=== PATIENT | female | born 1945 | race Caucasian/White ===

== ENCOUNTER 2023-04-22 12:22 | Outpatient (OUT) | payer MEDICARE, SELFPAY ==
[2023-04-22 12:34] LABS: Basophils Absolute Auto 0.1 10^3/uL (0.0-0.1); Basophils Percent Auto 0.6 % (0.2-2.0); Eosinophils Absolute Auto 0.2 10^3/uL (0.0-0.7); Eosinophils Percent Auto 1.9 % (0.9-7.0); Hematocrit 38.4 % (36.0-48.0); Hemoglobin 12.7 g/dL (12.0-16.0); Immature Granulocytes Abs Auto 0.02 10^3/uL (0.00-0.03); Immature Granulocytes Pct Auto 0.3 % (0.0-0.5); Lymphocytes Percent Auto 25.7 % (20.5-60.0); Mean Corpuscular HGB Conc 33.1 g/dL (29.9-35.2); Mean Corpuscular Hemoglobin 31.3 pg (26.7-34.0); Mean Corpuscular Volume 94.6 fL (81.0-99.0); Mean Platelet Volume 10.8 fL (9.5-13.5); Monocytes Absolute Auto 0.6 10^3/uL (0.3-0.8); Monocytes Percent Auto 7.3 % (1.7-12.0); Neutrophils Absolute Auto 5.1 10^3/uL (1.4-6.5); Neutrophils Percent Auto 64.2 % (43.0-75.0); Platelet Count 233 10^3/uL (150-450); Red Blood Count 4.06 10^6/uL (4.20-5.40); Red Cell Distribution Width 12.6 % (11.0-15.0); White Blood Count 7.9 10^3/uL (4.0-11.0)
[2023-04-22 14:13] LABS: Alanine Aminotransferase 24 U/L (14-59); Albumin Level 3.5 g/dL (3.4-5.0); Alkaline Phosphatase 64 U/L (46-116); Anion Gap 7.6; Aspartate Amino Transferase 17 U/L (15-37); BUN Creatinine Ratio 16.5; Bilirubin Total 0.8 mg/dL (0.2-1.0); Calcium 8.8 mg/dL (8.5-10.1); Carbon Dioxide 31.4 mmol/L (21.0-32.0); Chloride 106 mmol/L (98-107); Cholesterol 181 mg/dL (<=200); Estimated GFR (African America >60 (>=60); Estimated GFR (Non-African Ame >60 (>=60); Globulin 3.6 g/dL; Glucose 96 mg/dL (74-106); HDL Cholesterol 60 mg/dL (40-60); Sodium 141 mmol/L (136-145); Total Protein 7.1 g/dL (6.4-8.2); Triglycerides 258 mg/dL (<=150); VLDL CHOLESTEROL 51.6 mg/dL
== END 2023-04-22 12:23 | disposition home or self-care (01) ==
LOC: LAB 12:23
PROVIDERS: PCP Family Medicine; Visit Provider Family Medicine
DX: E78.2 Mixed hyperlipidemia (principal); I10 Essential (primary) hypertension
CPT/HCPCS: 36415; 80053; 80061; 85025

== ENCOUNTER 2024-03-30 08:49 | Outpatient (OUT) | payer MEDICARE, SELFPAY ==
[2024-03-30 10:10] LABS: Alanine Aminotransferase 22 U/L (14-59); Albumin Level 3.5 g/dL (3.4-5.0); Alkaline Phosphatase 70 U/L (46-116); Anion Gap 13.1; Aspartate Amino Transferase 17 U/L (15-37); BUN Creatinine Ratio 19.5; Calcium 9.1 mg/dL (8.5-10.1); Chloride 106 mmol/L (98-107); Chol HDL Ratio 2.6; Cholesterol 179 mg/dL (<=200); Estimated GFR (African America >60 (>=60); Estimated GFR (Non-African Ame >60 (>=60); Globulin 3.6 g/dL; Glucose 88 mg/dL (74-106); HDL Cholesterol 70 mg/dL (40-60); Potassium 4.1 mmol/L (3.5-5.1); Sodium 143 mmol/L (136-145); Total Protein 7.1 g/dL (6.4-8.2); Triglycerides 131 mg/dL (<=150); VLDL CHOLESTEROL 26.2 mg/dL
== END 2024-03-30 08:50 | disposition home or self-care (01) ==
LOC: LAB 08:49
PROVIDERS: PCP Family Medicine; Visit Provider Family Medicine
DX: E78.2 Mixed hyperlipidemia (principal); R79.89 Other specified abnormal findings of blood chemistry; E55.9 Vitamin D deficiency, unspecified
CPT/HCPCS: 36415; 80053; 80061; 82306

== ENCOUNTER 2025-08-04 08:20 | Outpatient (OUT) | payer MEDICARE, SELFPAY ==
--- OUTSIDE RECORDS SUMMARY | 2025-07-22 09:30 | XMS_ITS | Encounter Summary ---
Author Organization [facility] Address [address] [place] [address] Care Team Providers Care Director Of Vocational Training Name Role Phone Unallocated, Noms Provider Primary Care [facility] Reason for Visit * Reason Comments Post-op Encounter Details Date Type Department Care Team (Late st Contact Info) Description 07/22/2025 9:30 AM EDT Office Visit [facility] [address] [place] [address] Telly Rush DO [address] [place] [address] Pseudophakia (Primary Dx) Social History Tobacco Use Types Packs/Day Years Used Date Smoking Tobacco: Never Smokeless Tobacco: Never Alcohol Use Standard Drinks/Week Comments Never 0 (1 standard drink = 0.6 oz pure alcohol) Caffeine intake: 2-3 cups per day coffee & soda AUDIT-C Answer Date Recorded Q1: How often do you have a drink containing alcohol? Never 09/20/2024 Q2: How many drinks containi ng alcohol do you have on a typical day when you are drinking? Patient does not drink Q3: How often do you have si x or more drinks on one occasion? Never 09/20/2024 PHQ-2 Answer Date Recorded Patient Health Questionnaire-2 Score 0 09/20/2024 Comments No Sex and Gender Information Value Date Recorded Sex Assigned at Not on file Legal Sex Female 7:00 PM EDT Gender Identity Not on file Sexual Orientation Not on file documented as of this encounter Progress Notes * Telly Rush DO - 07/22/2025 9:30 AM EDT Images from the original note were not included. Assessment/Plan Diagnoses and all orders for this visit: Pseudophakia - s/p CE OU (1mth): Patient should be close to off all post-op meds. Pt. received final refraction for this eye today. - Ms. Burch has had a wonderful result with multifocal intraocular lens (IOL)s in both eyes (OU). She refracts with a very small Rx in right eye (OD). I think she is going to be great without an Rx at this time. I have asked that she see Ganga in 4 months for a dilated exam. documented in this encounter Plan of Treatment Upcoming Encounters Date Type Department Care Team (Late st Contact Info) Description 09/26/2025 11:30 AM EST Office Visit [facility] [address] [place] [address] Jerzy Kirkland DO [address] [place], [place] [id number] 03/09/2026 10:30 AM EDT Office Visit [facility] [address] [place] [address] Zina Wing PA [address] [place] [address] documented as of this encounter Visit Diagnoses Diagnosis Pseudophakia- Primary Lens replaced by other means documented in this encounter Care Teams Director Of Vocational Training Relationship Specialty Start Date End Date Unallocated, Nomwhit Thao MD [address] [place] [address] PCP - General 09/02/23 documented as of this encounter
--- OUTSIDE RECORDS SUMMARY | 2025-08-01 07:49 | XMS_ITS | Continuity of Care Document ---
Author Organization [facility] Address [address] [place] [address] Phone Care Team Providers Care Assistant Professor Of Philosophy Name Role Phone Francisca Jain MD Primary Care Provider Raymond White MD Attending Provider Francisca Jain MD Attending Provider Care Teams Patient Care Team Team Status: Active Member Role Status Dates Francisca Jain MD Primary Care Provider Active Visit Care Team Team Status: Inactive Member Role Status Dates Francisca Jain MD Primary Care Provider Active Start: May 09, 2025 End: May 09, 2025 Raymond White MD Attending Provider Active art: May 09, 2025 End: May 09, 2025 Patient Care Team Team Status: Inactive Member Role Status Dates Francisca Jain MD Primary Care Provider Active Start: August 01, 2025 End: August 01, 2025 Francisca Jain MD Attending Provider Active art: August 01, 2025 End: August 01, 2025 Chief Complaint and Reason for Visit Chief Complaint Admit Date m81.0 ve55.9 z79.899 May 09, 2025 10: 24am Wellness August 01, 2025 10 :47am Reason for Visit Admit Date Essential (primary) hypertension August 01, 2025 10:47am Mixed hyperlipidemia August 01, 2025 1 0:47am Allergies, Adverse Reactions, Alerts Allergen Type Severity Reaction Last Updated Verified Status Sulfa (Sulfonamide Antibiotics) Allergy Unknown Hives August 01 11:13am Yes Active pneumonia vaccine Allergy Moderate Swelling March 11:03am No Active Social History Smoking Status Status Start Date End Date Date of Observa tion Never smoked tobacco (finding) March 25, 2023 1:12pm Observation Status Observation Response Date of Response Legal Sex Female (finding) Sex Assigned At Female 1945 Family History Relationship Condition Age at Onset Recorded Date/T radha father Heart disease Unknown Unknown mother Unknown Heart disease Unknown Problems Active Problems Medical Problem Onset Date Status Medicare annual wellness visit, subsequent Unkno wn Active Maxillary sinusitis, acute Unknown Activ e Low vitamin D level Unknown Active Osteoporosis Unknown Active Mixed hyperlipidemia Unknown Active Essential (primary) hypertension Unknown Active Gastro-esophageal reflux disease without esophag itis Unknown Active Allergic rhinitis, unspecified March 21, 2015 A ctive Strain of muscle, fascia and tendon of lower back, initial encounter Unknown Active Vitamin D deficiency Unknown Active Medications Medication Status Dose Units Route Directions Qty Days St art Date Stop Date End Date Instructions Adherence Losartan 25 mg tablet Discont inued 25 MG PO Daily January 12, 2024 12:48p m March 29, 2024 11:31 am Losartan 25 mg tablet Discont inued 25 MG PO Daily June 11, 2024 7:58am [facility] thom 2023 5:32p m Pantoprazol e 40 mg tablet,myesha yed release (DR/EC) Discont inued 40 MG PO Daily June 11, 2024 7:58am [facility] thom 2023 5:32p m Simvastatin 20 mg tablet Discont inued 20 MG PO Daily 2023 8:40am [facility] 2023 5:32p m Losartan 25 mg tablet Active 25 MG PO Daily [facility] 2023 5:32pm Complies with drug therapy Pantoprazol e 40 mg tablet,myesha yed release (DR/EC) Discont inued 40 MG PO Daily Dece er 2023 5:32pm December 27, 2024 1:55p m Simvastatin 20 mg tablet Active 20 MG PO Daily 90 Dece er 2023 5:32pm Complies with drug therapy Pantoprazol e 40 mg tablet,myesha yed release (DR/EC) Active 40 MG PO Daily December 27, 2024 1:55pm Complies with drug therapy Pantoprazol e 40 mg tablet,myesha yed release (DR/EC) Discont inued 40 MG PO Daily March 29, 2024 11:30a m Augus t 2023 7:59a m Losartan 25 mg tablet Discont inued 25 MG PO Daily March 29, 2024 11:30a m Augus t 2023 7:59a m Lidocaine 5 % adhesive patch,medic ated Active 1 PATCH TOPICA L Daily as needed Octobe r 2024 11:13a m leave on most painful area for up to 12 hrs Unknown Losartan 25 mg tablet Discont inued 25 MG PO Daily December 31, 2023 1:00am January 12, 2024 12:49 pm Pantoprazol e 40 mg tablet,myesha yed release (DR/EC) Discont inued 40 MG PO Daily December 31, 2023 1:00am March 29, 2024 11:31 am Simvastatin 20 mg tablet Discont inued 20 MG PO Daily December 31, 2023 1:00am Septe er 2023 8:41a m Azithromyci n 250 mg tablet Discont inued 250 MG PO daily 6 December 31, 2023 1:00am March 29, 2024 11:02 am Take 2 tablets today and 1 for the next 4 days Naproxen 375 mg tablet Discont inued 375 MG PO Twice daily 20 10 Septem 2023 12:00a m Octob er 2024 11:14 am Lidocaine 5 % adhesive patch,medic ated Discont inued 1 PATCH TOPICA L Daily 15 15 Sept2023 12:00a m Octob er 2024 11:14 am leave on most painful area for up to 12 hrs Immunizations Immunization Event Date Not Given Reason Dose Number [place] Lot Number Vaccine Information Statement (VIS) Detail Administration Location COVID-19 mRNA, Comirnaty ([facility]) November 28, 2020 COVID-19 mRNA, Comirnaty ([facility]) August 06, 2021 Fluzone TIV High-Dose [id number]+ August 01, 2025 [id number] [facility] influenza, unspecified formulation September 01, 2018 influenza, unspecified formulation August 30, 2019 influenza, unspecified formulation August 14, 2020 influenza, unspecified formulation September 11, 2021 Pneumococcal Conjugate Vaccine, 13 valent June 04, 2018 Relevant Diagnostic Tests and/or Laboratory Data Laboratory Results Test Collection Date/Time Result Date/Time Result Interpretation Reference Range Result Comment Performing Site Blood Urea Nitrogen May 09, 2025 10:25am May 09, 2025 1:53pm 16 mg/dL 7-25 [facility] [id number] [address] [place] [address] Creatinine May 09, 2025 10:25am May 09, 2025 1:53pm 0.73 mg/dL 0.60-1.20 [facility] [id number] [address] [place] [address] Estimated GFR (CKD-EPI) May 09, 2025 10:25am May 09, 2025 1:53pm > 60.0 mL/Min [facility] [id number] [address] [place], [place] [id number] Calcium Level May 09, 2025 10:25am May 09, 2025 1:53pm 9.4 mg/dL 8.6-10.3 [facility] [id number] [address] [place], [place] [id number] Phosphorus Level May 09, 2025 10:25am May 09, 2025 1:53pm 3.4 mg/dL 2.5-4.5 [facility] [id number] [address] [place] [address] Magnesium Level May 09, 2025 10:25am May 09, 2025 1:53pm 1.9 mg/dL 1.9-2.7 [facility] [id number] [address] [place], [place] [id number] Pharmacy Creatinine Clearance (Chem May 09, 2025 10:25am May 09, 2025 1:53pm N/A [facility] [id number] [address] [place], [place] [address] Vital Signs Vital Reading Result Reference Range Collection Date/Time Height 62.5 [in_i] August 01 11:12am Weight 71.32 kg August 01 11:12am Heart Rate 85 /min 60-100 August 01 11:12am BP Systolic 126 mm[Hg] 100-140 August 01 11:21am BP Diastolic 79 mm[Hg] 60-100 August 01 11:21am BMI (Body Mass Index) 28.3 kg/m2 Octobe r 2024 11:12am Advance Directives Advance Directive Response Recorded Date/ Time Advance Directives No May 29 018 1:06pm Insurance Providers Guarantor [place] [address] Contact Info. Home Phone: Payer Policy Id Subscriber's Name Subscriber Id Effectiv e Date Expiration Date [employer] [facility] PFFS [id number] Eileen Burch [id number] Encounters Encounter Location(s) Arrival/Admit Date Discharge/Depart Date Provider(s) Departed Clinical -Lab [address] May 09, 2025 10:24am May 09, 2025 10:25am Raymond White MD Departed Physician/Prov ider Office Visit -[facility] August 01, 2025 10:47am August 01, 2025 11:48am Francisca Jain MD Recent Diagnosis Onset Date Admit Date Essential (primary) hypertension Unknown August 01, 2025 10:47am Mixed hyperlipidemia Unknown July 10:47am Assessments Diagnosis Onset Date Resolution Status Admit Date Essential (primary) hypertension acu te August 01, 2025 10:47am Mixed hyperlipidemia acute Octo 2024 10:47am Plan of Treatment Future Tests Future scheduled test information is unavailable Pending Tests Test Name Ordered Date Scheduled Date Comprehensive Metabolic Panel August 01, 2025 11:32am Future Visits Future appointment information is unavailable Referrals to Other Providers Referral information is unavailable Future Procedures Procedure Name Ordered Date Scheduled Date Complete Blood Count Auto Diff August 01, 2025 11:32am Lipid Panel August 01, 2025 11:32am MicroAlb Creat Ratio,U August 01, 2025 11:32am Future Medications Future medication information is unavailable Patient Instructions Patient instructions are unavailable
--- OUTSIDE RECORDS SUMMARY | 2025-08-02 08:51 | XMS_ITS | Encounter Summary ---
Author Organization [facility] Address [address] [place] [address] Care Team Providers Care Sonar Subsystem Equipment Operator Name Role Phone Unallocated, Noms Provider Primary Care [facility] Encounter Details Date Type Department Care Team ([facility] Contact Info) Description 07/22/2025 Bamboo flowsheet [facility] [address] [place] [phone] Telly Rush, DO [address] [place] [address] Social History Tobacco Use Types Packs/Day Years [...] on file documented as of this encounter Plan of Treatment Upcoming Encounters Date Type Department Care Team ([facility] Contact Info) Description 09/26/2025 11:30 AM EST Office Visit DANIEL [facility] [address] [place] [address] Jerzy Kirkland DO [address] [place] [address] 03/09/2026 10:30 AM EDT Office Visit [facility] [address] [place] [address] Zina Wing PA [address] [place] [address] documented as of this encounter Visit Diagnoses Not on filedocumented in this encounter Care Teams Sonar Subsystem Equipment Operator Relationship Specialty Start Date End Date Unallocated, Daniel Thao MD [address] [place] [address] PCP - General 09/02/23 documented as of this encounter
--- OUTSIDE RECORDS SUMMARY | 2025-08-02 08:51 | XMS_ITS | Encounter Summary ---
Author Organization [facility] Address [address] [facility] [place] [address] Care Team Providers Care Project Asst Name Role Phone Unallocated, Noms Provider Primary Care [facility] Encounter Details Date Type Department Care Team (Latest Contact Info) Description 07/22/2025 Travel Social History Tobacco Use Types Packs/Day Years [...] HOLLOWAY [address] [place] [address] Jerzy Kirkland, DO [address] [place] [address] 03/09/2026 10:30 AM EDT Office Visit [facility] [address] [place] [address] Zina Wing PA [address] [place] [address] documented as of this encounter Visit Diagnoses Not on filedocumented in this encounter Care Teams Project Asst Relationship Specialty Start Date End Date Unallocated, Nomwhit Thao MD [address] [facility] [place] [address] PCP - General 09/02/23 documented as of this encounter
--- OUTSIDE RECORDS SUMMARY | 2025-08-02 08:51 | XMS_ITS | Clinical Summary ---
Author Organization [facility] Address [address] [place] [address] Care Team Providers Care Production Line Technician Name Role Phone Unallocated, Noms Provider Primary Care Le[facility]ardoi makayla Allergies Active Allergy Reactions Criticality Noted Date Comments Other Swelling High 03/29/2024 Pneumonia Vaccine Sulfanilamide 09/02/2023 Other Reaction(s): Unknown Medications losartan (Cozaar) 25 MG tablet 1 (one) time each day at the same time. Active Protonix 40 MG EC tablet 1 (one) time each day at the same time. Active simvastatin (Zocor) 20 MG tablet 1 (one) time each day at the same time. Active Calcium Carb-Cholecalc iferol (CALCIUM 500 + D3 PO) Orally Active MULTIPLE VITAMIN PO Multiple Vitamin Active Prednisolon-Mo xiflox-Bromfen ac 1-0.5-0.075 % solutionIndica tions:Age-rela paolo nuclear cataract of both eyes Administer 1 drop into affected eye(s) in the morning and 1 drop at noon and 1 drop in the evening and 1 drop before bedtime. 10 mL 1 5 07/22/20 25 Discontinu ed(Therapy completed) Active Problems Problem Noted Date Diagnosed Date Dry eyes 07/12/2025 Pseudophakia 05/31/2025 Essential (primary) hypertension 09/20/2024 Gastro-esophageal reflux disease without esophag itis 09/20/2024 Low vitamin D level 09/20/2024 Mixed hyperlipidemia 09/20/2024 Acquired hallux valgus 09/02/2023 Atrophy of vagina 09/02/2023 Contracture, left ankle 09/02/2023 Fibrocystic breast changes 09/02/2023 Menopausal osteoporosis 09/02/2023 Allergic rhinitis, unspecified 03/21/2015 Osteoporosis 10/27/2008 Resolved Problems Problem Noted Date Diagnosed Date Resolved Date Age-related nuclear cataract of right eye 06/07/2025 06/14/2025 Age-related nuclear cataract of both eyes 05/10/2025 06/07/2025 Abnormal mammogram 09/02/2023 3 Encounters Date Type Department Care Team Description 07/22/2025 9:30 AM EDT Office Visit [facility] [address] [place] [address] Telly Rush, DO Pseudophakia (Primary Dx) 07/22/2025 Bamboo flowsheet [facility] [address] [place] [address] Telly Rush, DO 07/22/2025 Travel 07/21/2025 Travel 07/12/2025 9:45 AM EDT Office Visit [facility] [address] [place] [address] Telly Rush, DO Dry eyes (Primary Dx) 07/12/2025 Bamboo flowsheet [facility] [address] [place] [address] Telly Rush, DO 07/12/2025 Travel 06/21/2025 10:15 AM EDT Office Visit [facility] [address] [place] [address] Telly Rush, DO Pseudophakia (Primary Dx) 06/21/2025 Bamboo flowsheet [facility] [address] [place] [address] Telly Rush, DO 06/21/2025 Travel 06/16/2025 Travel 06/14/2025 9:00 AM EDT Office Visit [facility] [address] [place] [address] Telly Rush, DO Pseudophakia (Primary Dx) 06/14/2025 [facility]amboo [facility] [address] [place] [address] Telly Rush, DO 06/14/2025 Travel 06/07/2025 8:45 AM EDT Office Visit [facility] [address] [place] [address] Telly Rush, DO Pseudophakia (Primary Dx); Age-related nuclear cataract of right eye 06/07/2025 Bamboo flowsheet [facility] [address] [place] [address] Telly Rush, DO 06/07/2025 Travel 06/06/2025 Travel 05/31/2025 8:30 AM EDT Office Visit [facility] [address] [place] [address] Telly Rush, DO Pseudophakia (Primary Dx) 05/31/2025 Bamboo flowsheet [facility] [address] [place] [address] Telly Rush, DO 05/31/2025 Travel 05/10/2025 1:00 PM EDT Office Visit [facility] [address] [place] [address] Telly Rush, DO Age-related nuclear cataract of both eyes (Primary Dx) 05/10/2025 Orders Only [facility] [address] [place] [address] Telly Rush, DO Age-related nuclear cataract of both eyes 05/10/2025 Refill [facility] [address] [place] [address] Lavinia Smith, JENNIFER 05/10/2025 Bamboo flowsheet [facility] [address] [place] [address] Telly Rush, DO 05/10/2025 Travel from Last 3 Months Immunizations Immunization Administration Dates Next Due Influenza, High Dose Seasona l, Preservative Free 09/13/2024 Influenza, High-dose Seasona l, Quadrivalent, Preservative Free 08/09/2022 Influenza, Seasonal, Quadriv alent, Adjuvanted 08/29/2023,09/11/2021 Influenza, Unspecified 09/11/2021,2019,08/30/2019,2017 Influenza, seasonal, injectable 08/09/2019 Influenza, trivalent, adjuvanted 09/01/2018 Pneumococcal Conjugate PCV 13 06/04/2018 Family History Medical History Relation Name Comments Hypertension Brother Moi Viramontes Cataracts Father Moi Viramontes Heart disease Father Moi Viramontes Hypertension Father Moi Viramontes Heart disease Maternal Grandfather Cataracts Mother Helga Viramontes Heart disease Mother Helga Viramontes Lung cancer Paternal Grandmother Cancer Neg Hx Relation Name Status Comments Brothharley Viramontes Alive Father Moi Viramontes Maternal Grandfather Maternal Grandmother Mother Helga Viramontes Paternal Grandfather Paternal Grandmother Social History Tobacco Use Types Packs/Day Years Used Date Smoking Tobacco: Never Smokeless Tobacco: Never Tobacco Cessation:Counseling Given: Not Answered Alcohol Use Standard Drinks/Week Comments Never 0 [...] on file Sexual Orientation Not on file Last Filed Vital Signs Vital Sign Reading Time Taken Comments Blood Pressure 126/74 09/20/2024 1:15 PM EST Pulse - - Temperature - - Respiratory Rate - - Oxygen Saturation - - Inhaled Oxygen Concentration - - Weight 72.6 kg (160 lb) 09/20/2024 1:15 PM EST Height 159.4 cm (5' 2.75 ) 09/20/2024 1:15 PM ES T Body Mass Index 28.57 09/20/2024 1:15 PM EST Plan of Treatment Upcoming Encounters Date Type Department Care Team (Late st Contact Info) Description 09/26/2025 11:30 AM EST Office Visit DANIEL [facility] [address] [place] [address] Jerzy Kirkland DO [address] [place] [address] 03/09/2026 10:30 AM EDT Office Visit [facility] [address] [place] [address] Zina Wing PA [address] [place] [address] Health Maintenance Due Date Last Done Comments Pneumococcal Vaccine: 65+ Ye ars (2 of 2 - PPSV23) 06/04/2019 06/04/2018 Medicare Annual Wellness (AWV) 03/29/2025 03/29/2024 , 09/02/2023 Influenza Vaccine (#1) 2025 , 08/29/2023, 08/09/2022, Additional history exists Procedures Procedure Name Priority Date/Time Associated Diagnosis Comments IOL BIOMETRY - OU - BOTH EYES Routine 05/10/2025 1:36 PM EDT Age-related nuclear cataract of both eyes from Last 3 Months Results * IOL Biometry - OU - Both Eyes (CPT 93243) (05/10/2025 1:36 PM EDT) Anatomical Region Laterality Modality Head Other Narrative 05/10/2025 1:36 PM EDT Diagnosis: Cataract both eyes (OU) Testing Indication: Performed for preop measurements in the determination of an intraocular lens (IOL) for both eyes (OU) Test Reliability: Good quality both eyes (OU) Interpretation: Good measurements for intraocular lens (IOL) calculation purposes. Calculation made for both eyes (OU). us Telly Rush DO OPH[facility] ULTRASOUND Final Resu lt from Last 3 Months Insurance [employer] MED[employer]ARE [employer]VANTAGE Care Teams Production Line Technician Relationship Specialty Start Date End Date Unallocated, Noms Provider, [address] [place] [address] PCP - General 09/02/23
--- OUTSIDE RECORDS SUMMARY | 2025-08-02 08:51 | XMS_ITS | Encounter Summary ---
Author Organization [facility] Address [address] [facility] [place] [address] Care Team Providers Care Head Strength And Conditioning Coach Name Role Phone Unallocated, Noms Provider Primary Care [facility] Encounter Details Date Type Department Care Team (Latest Contact Info) Description 07/21/2025 Travel Social History Tobacco Use Types Packs/Day [...] HOLLOWAY [address] [place] [address] Jerzy Kirkland, DO [address] [place] [address] 03/09/2026 10:30 AM EDT Office Visit [facility] [address] [place] [address] Zina Wing PA [address] [place] [address] documented as of this encounter Visit Diagnoses Not on filedocumented in this encounter Care Teams Head Strength And Conditioning Coach Relationship Specialty Start Date End Date Unallocated, Nomwhit Thao MD [address] [facility] [place] [address] PCP - General 09/02/23 documented as of this encounter
--- OUTSIDE RECORDS SUMMARY | 2025-08-04 08:26 | XMS_ITS | CCD ---
Author Organization [facility] CliniSyla Care Team Providers Care Furnace And Wash Equipment Operator Name Role Phone SHAIKH VALDEZ Attending Unavailable DR FRANCISCA PEDROZA Primary Care Unavailable SHAIKH VALDEZ Admitting Unavailable SHAIKH VALDEZ Consulting Unavailable DR FRANCISCA PEDROZA Admitting Unavailable KASIA, DR FRANCISCA Dangelo Primary Care Unavailable DR FRANCISCA PEDROZA Consulting Unavailable KASIA, DR FRANCISCA Dangelo Attending Unavailable Francisca Pedroza Unavailable MD Francisca Pedroza Primary Care Provider YENIFER [place] Attending Provider MD Raymond White Attending Provider [phone] MD Francisca Pedroza Primary Care Provider Unallocated , [place] Provider [facility] Francisca Pedroza MD Primary Care Provider Raymond White MD Attending Provider Francisca Pedroza MD Primary Care Provider Raymond White MD Attending Provider Francisca Pedroza Primary Care Unavailable Raymond White Attending Unavailable Raymond White Admitting Unavailable Raymond White Attending Unavailable Raymond White Admitting Unavailable Francisca Pedroza Primary Care Unavailable JANIYA OLIVAREZ Referring Unavailable JANIYA OLIVAREZ Referring Unavailable ANTHONY LAURENT Attending Unavailable DONG RUSH Attending Unavailable JOHN TAYLOR Referring Unavailable DONG RUSH Attending Unavailable DONG RUSH Attending Unavailable JANIYA OLIVAREZ Attending Unavailable DONG RUSH Attending Unavailable DONG RUSH Attending Unavailable DONG RUSH Attending Unavailable DONG RUSH Attending Unavailable Francisca Pedroza MD Attending Provider [phone] Allergies Allergy Classification Reported Allergen(s) Allergy Type Date of Onset Reaction(s) Facility Sulfonamides (antibiotic) (2 sources) Sulfonamides (Antibiotic) Drug Allergy 4 [facility] (1 source) Pneumococcal vaccine Drug Allergy [facility] (1 source) Sulfonamides (Antibiotic) Drug allergy (disorder) [facility] (6 sources) Sulfonamides (Antibiotic) Allergy to substance 4 [facility] (8 sources) pneumonia vaccine Allergy to substance 4 [facility] (20 sources) Sulfanilamide Allergy to substance 3 [facility] (20 sources) Other Allergy to substance 4 Swelling [facility] Medications Current Medications Medication Drug Class(es) Dates Sig (Normalized) Sig (Original) Calcium Carb-Cholecalcifer ol (CALCIUM 500 + D3 PO) (20 sources) Calcium Carb-Cholecalcifero l (CALCIUM 500 + D3 PO) Orally Active lidocaine 0.05 mg/mg medicated patch (5 sources) Antiarrhythmic, Amide Local Anesthetic Start: 07-01-2024 End: 08-01-2025 apply 1 dose topically once daily as needed MULTIPLE VITAMIN PO (20 sources) MULTIPLE VITAMIN PO Multiple Vitamin Active Prednisolon-Moxifl ox-Bromfenac 1-0.5-0.075 % solution (14 sources) Start: 05-10-2025 End: 07-22-2025 Prednisolon-Moxiflo x-Bromfenac 1-0.5-0.075 % solution Indications: Age-related nuclear cataract of both eyes Administer 1 drop into affected eye(s) in the morning and 1 drop at noon and 1 drop in the evening and 1 drop before bedtime. 10 mL 1 05/10/2025 07/22/2025 Discontinued (Therapy completed) Start: 05-10-2025 Prednisolon-Mo xiflox-Bromfenac 1-0.5-0.075 % solution Indications: Age-related nuclear cataract of both eyes Administer 1 drop into affected eye(s) in the morning and 1 drop at noon and 1 drop in the evening and 1 drop before bedtime. 10 mL 1 05/10/2025 Active Completed/Discontinued Medications Medication Drug Class(es) Dates Sig (Normalized) Sig (Original) azithromycin 250 mg oral tablet (8 sources) Macrolide Antimicrobial Start: 12-31-2023 End: 03-29-2024 Azithromycin 250 mg tablet Discontinued 250 MG PO daily 6 5 December 31, 2023 1:00am March 29, 2024 11:02am Take 2 tablets today and 1 for the next 4 days hydrocortisone 10 mg/ml / neomycin 3.5 mg/ml / polymyxin b 26009 unt/ml otic suspension (4 sources) Aminoglycoside Antibacterial, Polymyxin-class Antibacterial, Corticosteroid Start: 03-25-2023 End: 09-20-2024 neomycin-polymyxi n-hydrocortisone (Cortisporin) 3.5-05268-2 otic suspension INSTILL 4 DROPS INTO AFFECTED EAR 3 TIMES A DAY FOR 7 DAYS 03/25/2023 09/20/2024 Discontinued Start: 03-25-2023 Start: 03-25-2023 Neomycin-Polym yxin-HC 3.5-60274-9 4 drops into affected ear Otic Three times a day for 7 days February, Active losartan potassium 25 mg oral tablet (20 sources) Angiotensin 2 Receptor Elia Start: 12-31-2023 End: 10-11-2024 take 1 tablet by mouth once daily Losartan 25 mg tablet Discontinued 25 MG PO Daily March 29, 2024 11:30am June 11, 2024 7:59am naproxen 375 mg oral tablet (4 sources) Nonsteroidal Anti-inflammatory Drug Start: 07-01-2024 End: 08-01-2025 take 1 tablet by mouth twice daily Naproxen 375 mg tablet Discontinued 375 MG PO Twice daily 15 08July 01, 2024 12:00am August 01, 2025 11:14am pantoprazole 40 mg delayed release oral tablet (20 sources) Proton Pump Inhibitor Start: 12-31-2022 End: 12-27-2024 take 1 tablet by mouth once daily Pantoprazole 40 mg tablet,delayed release (DR/EC) Discontinued 40 MG PO Daily December 31, 2023 1:00am March 29, 2024 11:31am simvastatin 20 mg oral tablet (20 sources) HMG-CoA Reductase Inhibitor Start: 12-31-2023 End: 10-11-2024 take 1 tablet by mouth once daily Simvastatin 20 mg tablet Discontinued 20 MG PO Daily 90 July 01, 2024 8:40am October 11, 2024 5:32pm Problems Active Problems Problem Classification Problem Date Documented Date Episodic/Chronic Acquired foot deformities (20 sources) Acquired hallux valgus; Translations: [Hallux valgus (acquired), unspecified foot] Onset: 09-02-2023 09-02-2023 Chronic Cataract (20 sources) Bilateral age-related nuclear cataracts; Translations: [Age-related nuclear cataract, bilateral] Onset: 05-10-2025 Resolved: 06-14-2025 05-10-2025 Chronic Disorders of lipid metabolism (20 sources) Hyperlipidemia, unspecified; Translations: [Mixed hyperlipidemia] Onset: 12-26-2021 Chronic Esophageal disorders (20 sources) Gastroesophageal reflux disease without esophagitis; Translations: [Gastro-esophageal reflux disease without esophagitis] Onset: 09-20-2024 12-31-2023 Chronic Essential hypertension (20 sources) Essential (primary) hypertension; Translations: [Essential hypertension] Onset: 12-25-2021 Chronic Menopausal disorders (20 sources) Atrophic vaginitis; Translations: [Postmenopausal atrophic vaginitis] Onset: 09-02-2023 09-20-2024 Chronic Neoplasms of unspecified nature or uncertain behavior (2 sources) Neoplasm of uncertain behavior of skin; Translations: [Neoplasm of uncertain behavior of skin] 03-09-2025 Episodic Nonmalignant breast conditions (20 sources) Fibrocystic disease of breast; Translations: [Diffuse cystic mastopathy of unspecified breast] Onset: 09-02-2023 09-02-2023 Chronic Nutritional deficiencies (11 sources) Vitamin D deficiency; Translations: [Vitamin D deficiency, unspecified] 03-29-2024 Chronic Osteoporosis (20 sources) Osteoporosis; Translations: [Age-related osteoporosis without current pathological fracture] Onset: 10-27-2008 12-31-2023 Chronic Other acquired deformities (20 sources) Contracture of joint of left ankle; Translations: [Contracture, left ankle] Onset: 09-02-2023 09-02-2023 Chronic Other and unspecified benign neoplasm (2 sources) Melanocytic nevus of trunk; Translations: [Melanocytic nevi of trunk] 03-09-2025 Episodic Other and unspecified benign neoplasm (2 sources) Senile angioma; Translations: [Hemangioma of skin and subcutaneous tissue] 03-09-2025 Episodic Other ear and sense organ disorders (2 sources) Otitis externa; Translations: [Other otitis externa, right ear] Chronic Other ear and sense organ disorders (1 source) Other otitis externa, right ear Chronic Other eye disorders (4 sources) Dry eyes; Translations: [Dry eye syndrome of bilateral lacrimal glands] Onset: 07-12-2025 07-12-2025 Episodic Other screening for suspected conditions (not mental disorders or infectious disease) (20 sources) Decreased vitamin D; Translations: [Other specified abnormal findings of blood chemistry] Onset: 09-02-2023 Resolved: 09-02-2023 03-29-2024 Episodic Other skin disorders (2 sources) Seborrheic keratosis; Translations: [Other seborrheic keratosis] 03-09-2025 Episodic Other skin disorders (2 sources) Lentigo simplex; Translations: [Other melanin hyperpigmentation] 03-09-2025 Episodic Other upper respiratory disease (20 sources) Allergic rhinitis; Translations: [Allergic rhinitis, unspecified] Onset: 03-21-2015 12-31-2023 Chronic Other upper respiratory infections (9 sources) Acute maxillary sinusitis; Translations: [Acute maxillary sinusitis, unspecified] 12-31-2023 Episodic Sprains and strains (5 sources) Low back strain; Translations: [Strain of muscle, fascia and tendon of lower back, initial encounter] 07-01-2024 Episodic Past or Other Problems Problem Classification Problem Date Documented Date Episodic/Chronic Noninfectious gastroenteritis (4 sources) Noninfective gastroenteritis and colitis, unspecified; Translations: [NONINFECTIVE GE AND COLITIS UNS] Onset: 07-20-2021 Episodic Results Test Name Value Interpretation Reference Range Facility [facility] - bilateralon 0 05-10-2025 Diagnosis: Cataract both eyes (OU) Testing Indication: Performed for preop measurements in the determination of an intraocular lens (IOL) for both eyes (OU) Test Reliability: Good quality both eyes (OU) Interpretation: Good measurements for intraocular lens (IOL) calculation purposes. Calculation made for both eyes (OU). [facility] Study observation (narrative) [facility] Calcium [Mass/volume] in Ser um or PlasmaOrdered By: Raymond White on 05-09-2025 Calcium [Mass/Vol] 9.4 mg/dL 8.6-10.3 [facility] Comment on above: Performed By: #### P HOS, MG, CREAT, CA, BUN #### [facility] [address] [place] [address] Creatinineon 05-09-2025 GFR/1.73 sq M.predicted MDRD (S/P/Bld) [Vol rate/Area] mL/min/{1.73_m2} Normal [facility] Comment on above: Performed By: #### P HOS, MG, CREAT, CA, BUN #### [facility] [address] [place] [address] Creatinine [Mass/volume] in Serum or PlasmaOrdered By: Raymond White on 05-09-2025 Creatinine [Mass/Vol] 0.73 mg/dL 0.60-1.20 [facility] Comment on above: Performed By: #### P HOS, MG, CREAT, CA, BUN #### [facility] [address] [place] [address] Magnesium [Mass/volume] in S florecita or PlasmaOrdered By: Raymond White on 05-09-2025 Magnesium [Mass/Vol] 1.9 mg/dL 1.9-2.7 [facility] Comment on above: Result Comment: PERF ORMED BY: [place] [address] PATHOLOGIST ARTIST MANNEQUIN COLORING DENISE ROBERTSON M.D. Performed By: #### P HOS, MG, CREAT, CA, BUN #### [address] No Panel InformationOrdered By: Raymond White on 05-09-2025 Estimated GFR (CKD-EPI) > 60.0 mL/Min [facility] Creatinine Clearance (Chem N/A [facility] Phosphate [Mass/volume] in S florecita or PlasmaOrdered By: Raymond White on 05-09-2025 Phosphate [Mass/Vol] 3.4 mg/dL 2.5-4.5 [facility] Comment on above: Performed By: #### P HOS, MG, CREAT, CA, BUN #### [facility] [address] Urea nitrogen [Mass/volume] in Serum or PlasmaOrdered By: Raymond White on 05-09-2025 Urea nitrogen [Mass/Vol] 16 mg/dL 7 [facility] Comment on above: Performed By: #### P HOS, MG, CREAT, CA, BUN #### [facility] [address] BI MAMMOGRAM SCREENING TOMOS YNTHESIS BILATERALon 12-31-2024 BI MAMMOGRAM SCREENING TOMOSYNTHESIS BILATERAL This is a summary report. The complete report is available in the patient's medical record. If you cannot access the medical record, please contact the sending organization for a detailed fax or copy. Examination: BI MAMMOGRAM SCREENING TOMOSYNTHESIS BILATERAL Clinical History: Breast Cancer Screening Technique: Screening digital mammography study of both breasts was performed with 2-D and 3-D tomosynthesis imaging. Study was compared to the prior exam dated 09/03/2023. Findings: There is no evidence of interval dominant spiculated mass, grouped microcalcifications, or skin thickening which would be suggestive of malignancy. A few benign-appearing calcifications are noted on the left. Axillary lymph nodes are noted on the left and appear grossly unremarkable. IMPRESSION: Impression: No specific evidence of malignancy seen in either breast. BIRADS 2 - Benign Findings DENSITY: There are scattered areas of fibroglandular density. FOLLOW-UP: Routine Screening Mammogram ELECTRONICALLY SIGNED BY: Rayray Stockton M.D. Normal Not Available Comment on above: Order Comment: Spot compression and us prn Blood Urea Nitrogenon 2024 Urea nitrogen [Mass/Vol] 15 mg/dL Normal 05-20 [facility] Comment on above: Performed By: #### C A, BUN, CREAT, PHOS, MG #### [facility] [address] [id number] [facility] Calciumon 11-03-2024 Calcium [Mass/Vol] 9.5 mg/dL Normal 8.6-10.3 [facility] Comment on above: Performed By: #### C A, BUN, CREAT, PHOS, MG #### [address] Calcium [Mass/volume] in Ser um or PlasmaOrdered By: Raymond White on 11-03-2024 Calcium [Mass/Vol] Calcium [Mass/volume] in Serum or Plasma 8.6-10.3 [facility] Creatinineon 11-03-2024 Creatinine [Mass/Vol] 0.87 mg/dL Normal 0.60-1.20 [facility] Comment on above: Performed By: #### C A, BUN, CREAT, PHOS, MG #### [address] GFR/1.73 sq M.predicted MDRD (S/P/Bld) [Vol rate/Area] mL/min/{1.73_m2} Normal [facility] Comment on above: Performed By: #### C A, BUN, CREAT, PHOS, MG #### [address] Creatinine [Mass/volume] in Serum or PlasmaOrdered By: Raymond White on 11-03-2024 Creatinine [Mass/Vol] Creatinine [Mass/volume] in Serum or Plasma 0.60-1.20 [facility] Magnesiumon 11-03-2024 Magnesium [Mass/Vol] 2.0 mg/dL Normal 1.9-2.7 [facility] Comment on above: Result Comment: PERF ORMED BY: [place] [address] PATHOLOGIST ARTIST MANNEQU[employer] COLORING NOLAN MAGANA M.D. Performed By: #### C A, BUN, CREAT, PHOS, MG #### [address] Magnesium [Mass/volume] in S florecita or PlasmaOrdered By: Raymond White on 11-03-2024 Magnesium [Mass/Vol] Magnesium [Mass/volume] in Serum or Plasma 1.9-2.7 [facility] No Panel InformationOrdered By: Raymond White on 11-03-2024 Estimated GFR (CKD-EPI) > 60.0 mL/Min [facility] Creatinine Clearance (Chem N/A [facility] Phosphate [Mass/volume] in S florecita or PlasmaOrdered By: Raymond White on 11-03-2024 Phosphate [Mass/Vol] Phosphate [Mass/volume] in Serum or Plasma 2.5-4.5 [facility] Phosphoruson 11-03-2024 Phosphate [Mass/Vol] 3.6 mg/dL Normal 2.5-4.5 [facility] Comment on above: Performed By: #### C A, BUN, CREAT, PHOS, MG #### [facility] [address] Urea nitrogen [Mass/volume] in Serum or PlasmaOrdered By: Raymond White on 11-03-2024 Urea nitrogen [Mass/Vol] Urea nitrogen [Mass/volume] in Serum or Plasma 7-25 [facility] Calcium [Mass/volume] in Ser um or PlasmaOrdered By: Raymond White on 04-22-2024 Calcium [Mass/Vol] 9.3 mg/dL 8.6-10.3 [facility] Creatinine [Mass/volume] in Serum or PlasmaOrdered By: Raymond White on 04-22-2024 Creatinine [Mass/Vol] 0.89 mg/dL 0.60-1.20 [facility] Magnesium [Mass/volume] in S florecita or PlasmaOrdered By: Raymond White on 04-22-2024 Magnesium [Mass/Vol] 2.0 mg/dL 1.9-2.7 [facility] No Panel InformationOrdered By: Raymond White on 04-22-2024 Estimated GFR (CKD-EPI) > 60.0 mL/Min [facility] Creatinine Clearance (Chem N/A [facility] Phosphate [Mass/volume] in S florecita or PlasmaOrdered By: Raymond White on 04-22-2024 Phosphate [Mass/Vol] 3.1 mg/dL 2.5-4.5 [facility] Urea nitrogen [Mass/volume] in Serum or PlasmaOrdered By: Raymond White on 04-22-2024 Urea nitrogen [Mass/Vol] 16 mg/dL 7- [facility] Cholesterol in LDL Calc [Mas s/Vol]on 03-30-2024 Cholesterol in LDL [Mass/Vol] 83.0 mg/dL [facility] Comment on above: <100 mg/dl [id number] 0-129 mg/dl NEAR OR ABOVE [id number] mg/dl BORDERLINE [id number] mg/dl HIGH>190 mg/dl VERY HIGH Cholesterol in VLDL Calc [Ma ss/Vol]on 03-30-2024 Cholesterol in VLDL [Mass/Vol] 26.2 mg/dL [facility] Estimated glomerular filtrat ion rate (GFR) non- Americanon 03-30-2024 GFR/1.73 sq M.predicted among non-blacks MDRD (S/P/Bld) [Vol rate/Area] mL/min/{1.73_m2} >=60 [facility] Globulin Calc (S) [Mass/Vol] on 03-30-2024 Globulin (S) [Mass/Vol] 3.6 g/dL F [facility] - Chemistry and C hemistry - challengeon 03-30-2024 Albumin [Mass/Vol] 3.5 g/dL 3.4-5.0 [facility] ALP [Catalytic activity/Vol] 70 U/L 46-116 [facility] ALT [Catalytic activity/Vol] 22 U/L 14-59 [facility] AST [Catalytic activity/Vol] 17 U/L 15-37 [facility] Bilirubin [Mass/Vol] 1.0 mg/dL 0.2-1.0 [facility] Calcium [Mass/Vol] 9.1 mg/dL 8.5-10.1 [facility] Chloride [Moles/Vol] 106 mmol/L 98-107 [facility] Cholesterol [Mass/Vol] 179 mg/dL <=200 [facility] Cholesterol in HDL [Mass/Vol] 70 mg/dL High 40-60 [facility] Comment on above: > or =60 mg/dl - LOW CARDIOVASCULAR RISK<40 mg/dl - HIGH CARDIOVASCULAR RISK CO2 [Moles/Vol] 28.0 mmol/L 21.0-32.0 [facility] Creatinine [Mass/Vol] 0.82 mg/dL 0.55-1.02 [facility] GFR/1.73 sq M.predicted MDRD (S/P/Bld) [Vol rate/Area] mL/min/{1.73_m2} >=60 [facility] Glucose [Mass/Vol] 88 mg/dL 74-106 [facility] Potassium [Moles/Vol] 4.1 mmol/L 3.5-5.1 [facility] Protein [Mass/Vol] 7.1 g/dL 6.4-8.2 [facility] Sodium [Moles/Vol] 143 mmol/L 136-145 [facility] Triglyceride [Mass/Vol] 131 mg/dL <=150 [facility] Urea nitrogen [Mass/Vol] 16.0 mg/dL 7.0-18.0 [facility] Urea nitrogen/Creatinine [Mass ratio] 19.5 mg/mg [facility] No Panel Informationon 03-30 25-Hydroxy Vitamin D Total 96.4 ng/mL [facility] Comment on above: <20 ng/mL Vit D defi cient20-<30 ng/mL Vit D [id number] ng/mL Vit D sufficient>100 ng/mL Potential Toxicity Serum or plasma albumin/glob ulin mass ratioon 03-30-2024 Albumin/Globulin [Mass ratio] 1.0 {ratio} [facility] Serum or plasma anion gap de terminationon 03-30-2024 Anion gap [Moles/Vol] 13.1 mmol/L [facility] Serum or plasma total choles terol/high density lipoprotein (HDL) cholesterol mass esau 03-30-2024 Cholesterol.total/Lita sterol in HDL [Mass ratio] 2.6 {ratio} [facility] Comment on above: 3.3 - 4.4 LOW RISK4. 4 - 7.1 AVERAGE RISK7.1 - 11.0 MODERATE RISK>11.0 HIGH RISK SCREENING MAMMOGRAM W/JOE, BILATERAL*on 08-30-2022 SCREENING MAMMOGRAM W/JOE, BILATERAL* CLINICAL HISTORY: Screening Mammogram COMPARISON: Priors dating back to 2015. TECHNIQUE: 2D and 3D mammogram imaging of both breasts was performed. RESULT: DENSITY: Almost entirely fatty. There is no suspicious mass, asymmetry, architectural distortion, or calcification in either breast. No significant change since the prior mammograms. IMPRESSION: BIRADS 1 : NEGATIVE, NORMAL INTERVAL FOLLOW UP FOLLOW-UP: 12 months DENSITY: Fatty MAMMOGRAPHY IS VERY IMPORTANT TO YOUR HEALTH. THE CURRENT [employer] GUIDELINES RECOMMENDS ANNUAL MAMMOGRAPHY BEGINNING AT AGE 40 THIS FACILITY USES A REMINDER SYSTEM TO ENSURE ALL PATIENTS RECEIVE REMINDER NOTIFICATIONS AT THE APPROPRIATE TIME BASED ON THE RECOMMENDATIONS OF THIS EXAM. Board Certified Radiologist. Accredited by the ACR and FDA. Report reported and signed by Roman Barrera on 08/30/2022 1131 Normal [facility] Specialist CBC AUTO DIFFon 12-25-2021 BASO # 0.1 103/ul Normal 0.0-0.1 [facility] Comment on above: Performed By: #### C BC #### [facility] [address] [place] [address] Dr. Lindsey May Basophils/100 WBC (Bld) 0.9 % Normal 0.2-2.0 [facility] Comment on above: Performed By: #### C BC #### [facility] [address] [place] [address] Dr. Lindsey May EO # 0.1 103/ul Normal 0.0-0.7 [facility] Comment on above: Performed By: #### C BC #### [facility] [address] [place] [address] Dr. Lindsey May Eosinophils/100 WBC (Bld) 2.4 % Normal 0.9-7.0 [facility] Comment on above: Performed By: #### C BC #### [facility] [address] [place] [address] Dr. Lindsey May Erythrocyte distribution width (RBC) [Ratio] 12.6 % Normal 11.0-15.0 [facility] Comment on above: Performed By: #### C BC #### [facility] [address] [place] [address] Dr. Lindsey May Hematocrit (Bld) [Volume fraction] 41.9 % Normal 36.0-48.0 [facility] Comment on above: Performed By: #### C BC #### [facility] [address] [place] [address] Dr. Lindsey May Hemoglobin (Bld) [Mass/Vol] 13.6 g/dL Normal 12.0-16.0 [facility] Comment on above: Performed By: #### C BC #### [facility] [address] [place] [address] Dr. Lindsey May IG # 0.01 10e3/ul Normal 0.00-0.03 [facility] Comment on above: Performed By: #### C BC #### [facility] [address] [place] [address] Dr. Lindsey May IG % 0.2 % Normal 0.0-0.5 [facility] Comment on above: Performed By: #### C BC #### [facility] [address] [place] [address] Dr. Lindsey May LYMPH # 1.8 103/ul Normal 1.2-3.8 [facility] Comment on above: Performed By: #### C BC #### [facility] [address] [place] [address] Dr. Lindsey aMy Lymphocytes/100 WBC (Bld) 31.4 % Normal 20.5-60.0 [facility] Comment on above: Performed By: #### C BC #### [facility] [address] [place] [address] Dr. Lindsey May MANUAL DIFF REQ NO Normal [facility] Comment on above: Performed By: #### C BC #### [facility] [address] [place] [address] Dr. Lindsey May MCH (RBC) [Entitic mass] 31.6 pg Normal 26.7-34.0 [facility] Comment on above: Performed By: #### C BC #### [facility] [address] [place] [address] Dr. Lindsey May MCHC (RBC) [Mass/Vol] 32.5 g/dL Normal 29.9-35.2 [facility] Comment on above: Performed By: #### C BC #### [facility] [address] [address] [address] Lindsey May MCV (RBC) [Entitic vol] 97.4 fL Normal 81.0-99.0 [facility] Comment on above: Performed By: #### C BC #### [facility] [address] [address] [address] Lindsey May MONO # 0.4 103/ul Normal 0.3-0.8 [facility] Comment on above: Performed By: #### C BC #### [facility] [address] [place] [address] Dr. Lindsey May Monocytes/100 WBC (Bld) 6.6 % Normal 1.7-12.0 [facility] Comment on above: Performed By: #### C BC #### [facility] [address] [place] [address] Dr. Lindsey May NEUT # 3.4 103/ul Normal 1.4-6.5 [facility] Comment on above: Performed By: #### C BC #### [facility] [address] [place] [address] Dr. Lindsey May Neutrophils/100 WBC (Bld) 58.5 % Normal 43.0-75.0 [facility] Comment on above: Performed By: #### C BC #### [facility] [address] [place] [address] Dr. Lindsey May Platelet mean volume (Bld) [Entitic vol] 10.9 fL Normal 9.5-13.5 [facility] Comment on above: Performed By: #### C BC #### [facility] [address] [place] [address] Dr. Lindsey May PLT 248 103/ul Normal 150-450 [facility] Comment on above: Performed By: #### C BC #### [facility] [address] [place] [address] Dr. Linsdey May RBC 4.30 106/ul Normal 4.20-5.40 [facility] Comment on above: Performed By: #### C BC #### [facility] [address] [place], [place] [id number] Dr. Lindsey May WBC 5.8 103/ul Normal 4.0-11.0 [facility] Comment on above: Performed By: #### C BC #### [facility] [address] [address] [address] Lindsey May LIPID PROFILEon 12-25-2021 CHOL-HDL RATIO NORM SEE BELOW Normal [facility] Comment on above: Result Comment: 3.3 - 4.4 LOW RISK 4.4 - 7.1 AVERAGE RISK 7.1 - 11.0 MODERATE RISK >11.0 HIGH RISK Performed By: #### C MP, LIPID #### [facility] [address] [address] [address] Lindsey May Cholesterol [Mass/Vol] 176 mg/dL Normal <=200 Th [facility] Comment on above: Performed By: #### C MP, LIPID #### [facility] [address] [address] [address] Lindsey May Cholesterol in HDL [Mass/Vol] 74 mg/dL Normal [facility] Comment on above: Performed By: #### C MP, LIPID #### [facility] [address] [address] [address] Lindsey May Cholesterol in LDL [Mass/Vol] 80.6 mg/dL Normal [facility] Comment on above: Performed By: #### C MP, LIPID #### [facility] [address] [address] [address] Lindsey May Cholesterol.total/Lita sterol in HDL [Mass ratio] 2.4 {ratio} Normal [facility] Comment on above: Performed By: #### C MP, LIPID #### [facility] [address] [address] [address] Lindsey May HDL NORMAL > or = 60 mg/dl - LOW CARDIOVASCULAR RISK <40 mg/dl - HIGH CARDIOVASCULAR RISK Normal [facility] Comment on above: Performed By: #### C MP, LIPID #### [facility] [address] [address] [address] Lindsey May LDL CALC NORMAL SEE BELOW Normal [facility] Comment on above: Result Comment: <100 mg/dl OPTIMAL 100 - 129 mg/dl NEAR OR ABOVE OPTIMAL 130 - 159 mg/dl BORDERLINE HIGH 160 - 189 mg/dl HIGH >190 mg/dl VERY HIGH Performed By: #### C MP, LIPID #### [facility] [address] [place] [address] Dr. Lindsey May Triglyceride [Mass/Vol] 107 mg/dL Normal <=150 T [facility] Comment on above: Performed By: #### C MP, LIPID #### [facility] [address] [place] [address] Dr. Lindsey May VLDL CALC 21.4 mg/dL Normal [facility] Comment on above: Performed By: #### C MP, LIPID #### [facility] [address] [place] [address] Dr. Lindsey May PROF 14(COMP METB)on 022 Albumin [Mass/Vol] 3.7 g/dL Normal 3.5-5.0 [facility] Comment on above: Performed By: #### C MP, LIPID #### [facility] [address] [place] [address] Dr. Lindsey May Albumin/Globulin [Mass ratio] 1.0 {ratio} Normal [facility] Comment on above: Performed By: #### C MP, LIPID #### [facility] [address] [place] [address] Dr. Lindsey May ALP [Catalytic activity/Vol] 66 U/L Normal 38-126 [facility] Comment on above: Performed By: #### C MP, LIPID #### [facility] [address] [place] [address] Dr. Lindsey May ALT [Catalytic activity/Vol] 23 U/L Normal 9-52 [facility] Comment on above: Performed By: #### C MP, LIPID #### [facility] [address] [place] [address] Dr. Lindsey May Anion gap [Moles/Vol] 10.2 mmol/L Normal [facility] Comment on above: Performed By: #### C MP, LIPID #### [facility] [address] [place] [address] Dr. Lindsey May AST [Catalytic activity/Vol] 18 U/L Normal 14-36 [facility] Comment on above: Performed By: #### C MP, LIPID #### [facility] [address] [place] [address] Dr. Lindsey May Bilirubin [Mass/Vol] 1.1 mg/dL Normal 0.2-1.3 [facility] Comment on above: Performed By: #### C MP, LIPID #### [facility] [address] [place] [address] Dr. Lindsey May Calcium [Mass/Vol] 9.1 mg/dL Normal 8.4-10.2 [facility] Comment on above: Performed By: #### C MP, LIPID #### [facility] [address] [place] [address] Dr. Lindsey May Chloride [Moles/Vol] 107 mmol/L Normal 98-107 [facility] Comment on above: Performed By: #### C MP, LIPID #### [facility] [address] [place] [address] Dr. Lindsey May CO2 [Moles/Vol] 27.8 mmol/L Normal 22.0-30.0 [facility] Comment on above: Performed By: #### C MP, LIPID #### [facility] [address] [place] [address] Dr. Lindsey May Creatinine [Mass/Vol] 0.86 mg/dL Normal 0.52-1.04 [facility] Comment on above: Performed By: #### C MP, LIPID #### [facility] [address] [place] [address] Dr. Lindsey May EGFR-AF ANGUILLAN >60 Normal >=60 [facility] Comment on above: Performed By: #### C MP, LIPID #### [facility] [address] [place] [address] Dr. Lindsey May EGFR-NON AF ANGUILLAN >60 Normal >=60 [facility] Comment on above: Performed By: #### C MP, LIPID #### [facility] [address] [place] [address] Dr. Lindsey May Globulin (S) [Mass/Vol] 3.7 g/dL Normal [facility] Comment on above: Performed By: #### C MP, LIPID #### [facility] [address] [place] [address] Dr. Lindsey May Glucose [Mass/Vol] 91 mg/dL Normal 74-106 [facility] Comment on above: Performed By: #### C MP, LIPID #### [facility] [address] [place] [address] Dr. Lindsey May Potassium [Moles/Vol] 4.2 mmol/L Normal 3.4-5.0 [facility] Comment on above: Performed By: #### C MP, LIPID #### [facility] [address] [place] [address] Dr. Lindsey May Protein [Mass/Vol] 7.4 g/dL Normal 6.1-8.2 [facility] Comment on above: Performed By: #### C MP, LIPID #### [facility] [address] [place] [address] Dr. Lindsey May Sodium [Moles/Vol] 141 mmol/L Normal 137-145 [facility] Comment on above: Performed By: #### C MP, LIPID #### [facility] [address] [place] [address] Dr. Lindsey May Urea nitrogen [Mass/Vol] 13.0 mg/dL Normal 7.0-17.0 [facility] Comment on above: Performed By: #### C MP, LIPID #### [facility] [address] [place] [address] Dr. Lindsey May Urea nitrogen/Creatinine [Mass ratio] 15.1 mg/mg Normal [facility] Comment on above: Performed By: #### C MP, LIPID #### [facility] [address] [place] [address] Dr. Lindsey May LACTOFERRIN FECAL QUANTon Lactoferrin, Fecal, Quant. 5.38 ug/mL(g) Normal 0.00-7.24 [facility] Comment on above: Result Comment: . Baseline (normal) 0.00 - 7.24 Elevated >7.24 . An elevated result is indicative of the presence of fecal lactoferrin, a marker of intestinal inflammation. A normal result does not exclude the presence of intestinal inflammation. The test can be used as an in vitro diagnostic aid to distinguish patients with active inflammatory bowel disease (IBD) from those with non-inflammatory irritable bowel syndrome (IBS). Performed By: #### L ACTFQ #### [facility] [address] [address] [address] Lindsey May CLOSTRIDIUM DIFFICILE PCRon 07-22-2021 C difficile Toxin Gene MAIN Negative Normal Negative [facility] Comment on above: Performed By: #### C DIFNAA #### [facility] [address] [place] [address] Dr. Lindsey May GIARDIA LAMBLIA DETECTIONon 07-21-2021 Giardia lamblia Ag, EIA Negative Normal Negative [facility] Comment on above: Performed By: #### G IARDIA #### [facility] [address] [place] [address] Dr. Lindsey May CULTURE STOOLon 07-20-2021 CULTURE STOOL Culture Observations: NO GROWTH SALMONELLA, SHIGELLA, YERSINIA, CAMPY, E.COLI 0157, OR STAPH AT 72 HRS Normal [facility] Comment on above: Performed By: #### S TOOLCX #### [facility] [address] [place] [address] Dr. Lindsey May Vital Signs Date Time Vital Sign Value Performing Clinician Facility 08-01-2025 11:21-040 Diastolic blood pressure 79 mm[Hg] Francisca Pedroza MD Work Phone: [facility] 08-01-2025 11:21-0400 Systolic blood pressure 126 mm[Hg] Francisca Pedroza MD Work Phone: [facility] 08-01-2025 11:12040 Body height 158.75 cm Francisca Pedroza MD Work Phone: [facility] 08-01-2025 11:12040 Body mass index (BMI) [Ratio] 28.3 kg/m2 Francisca Pedroza MD Work Phone: [facility] 08-01-2025 11:12-0400 Body weight 71.32 kg Francisca Pedroza MD Work Phone: [facility] 08-01-2025 11:12-0400 Heart rate 85 /min Francisca Pedroza MD Work Phone: [facility] 09-20-2024 13:15-0500 Body height 159.4 cm Janiya Olivarez DO Work Phone: [facility] 09-20-2024 13:15-0500 Body mass index (BMI) [Ratio] 28.57 kg/m2 Janiya Olivarez DO Work Phone: [facility] 09-20-2024 13:15-0500 Body weight 72.58 kg Janiya Olivarez DO Work Phone: [facility] 09-20-2024 13:15-0500 Diastolic blood pressure 74 mm[Hg] Janiya Olivarez DO Work Phone: [facility] 09-20-2024 13:15-0500 Systolic blood pressure 126 mm[Hg] Janiya Olivarez DO Work Phone: [facility] 07-06-2024 13:02-0400 Body height 160.02 cm MD Francisca Pedroza Work Phone: [facility] 07-06-2024 13:02-0400 Body mass index (BMI) [Ratio] 28 kg/m2 MD Francisca Pedroza Work Phone: [facility] 07-06-2024 13:02-0400 Body weight 71.66 kg MD Francisca Pedroza Work Phone: [facility] 07-06-2024 13:02-0400 Diastolic blood pressure 82 mm[Hg] MD Francisca Pedroza Work Phone: [facility] 07-06-2024 13:02-0400 Heart rate 74 /min MD Francisca Pedroza Work Phone: [facility] 07-06-2024 13:02-0400 Systolic blood pressure 161 mm[Hg] MD Francisca Pedroza Work Phone: [facility] 07-01-2024 09:44-0400 Body height 160.02 cm MD Francisca Pedroza Work Phone: [facility] 07-01-2024 09:44-0400 Body mass index (BMI) [Ratio] 27.6 kg/m2 MD Francisca Pedroza Work Phone: [facility] 07-01-2024 09:44-0400 Body temperature 98.7 [degF] MD Francisca Pedroza Work Phone: [facility] 07-01-2024 09:44-0400 Body weight 70.93 kg MD Francisca Pedroza Work Phone: [facility] 07-01-2024 09:44-0400 Diastolic blood pressure 108 mm[Hg] MD Francisca Pedroza Work Phone: [facility] 07-01-2024 09:44-0400 Heart rate 81 /min MD Francisca Pedroza Work Phone: [facility] 07-01-2024 09:44-0400 Respiratory rate 18 /min MD Francisca Pedroza Work Phone: [facility] 07-01-2024 09:44-0400 SaO2% (BldA) [Mass fraction] 98 % MD Francisca Pedroza Work Phone: [facility] 07-01-2024 09:44-0400 Systolic blood pressure 186 mm[Hg] MD Francisca Pedroza Work Phone: [facility] 03-29-2024 11:00-0400 Body height 160.02 cm [facility] 03-29-2024 11:00-0400 Body mass index (BMI) [Ratio] 27.8 kg/m2 [facility] 03-29-2024 11:00-0400 Body weight 71.21 kg [facility] 03-29-2024 11:00-0400 Diastolic blood pressure 82 mm[Hg] [facility] 03-29-2024 11:00-0400 Heart rate 91 /min [facility] 03-29-2024 11:00-0400 Systolic blood pressure 173 mm[Hg] [facility] 03-25-2023 13:15-0400 Body height 162.56 cm Francisca Pedroza Other [facility] Other 03-25-2023 13:15-0400 Body mass index (BMI) [Ratio] 27.12 kg/m2 Francisca Pedroza Other [facility] Other 03-25-2023 13:15-0400 Body weight 71.67 kg Francisca Pedroza Other [facility] Other 03-25-2023 13:15-0400 Diastolic blood pressure 84 mm[Hg] Francisca Pedroza Other [facility] Other 03-25-2023 13:15-0400 Systolic blood pressure 138 mm[Hg] Francisca Pedroza Other [facility] Other Encounters Encounter Date Encounter Type Care Provider Facility Start: 08-01-2025 End: 08-01-2025 ambulatory Francisca Pedroza MD Work Phone: [facility] Work Phone: Start: 08-01-2025 End: 08-01-2025 Patient encounter procedure Francisca Pedroza MD -[facility] Work Phone: Start: 07-22-2025 End: 07-22-2025 Bamboo flowsheet Dong Rush DO Work Phone: [facility] Start: 07-22-2025 End: 07-22-2025 Bamboo flowsheet Dong Rush DO Work Phone: [facility] Start: 07-22-2025 End: 07-22-2025 Postop follow up visit related to original px Dong Rush DO Work Phone: [facility] Comment on above: Pseudophakia (Primar y Dx) Start: 07-22-2025 End: 07-22-2025 ambulatory DONG D ZAHLER Not Available Start: 07-12-2025 End: 07-12-2025 Bamboo flowsheet Dong D Zahler DO Work Phone: [facility] Start: 07-12-2025 End: 07-12-2025 Bamboo flowsheet Dong D Zahler DO Work Phone: [facility] Start: 07-12-2025 End: 07-12-2025 Postop follow up visit related to original px Dong D Zahler DO Work Phone: [facility] Comment on above: Dry eyes (Primary Dx ) Start: 07-12-2025 End: 07-12-2025 ambulatory DONG D ZAHLER Not Available Start: 06-21-2025 End: 06-21-2025 Bamboo flowsheet Dong D Zahler DO Work Phone: [facility] Start: 06-21-2025 End: 06-21-2025 Bamboo flowsheet Dong D Zahler DO Work Phone: [facility] Start: 06-21-2025 End: 06-21-2025 Postop follow up visit related to original px Dong D Zahler DO Work Phone: [facility] Comment on above: Pseudophakia (Primar y Dx) Start: 06-21-2025 End: 06-21-2025 ambulatory DONG D ZAHLER Not Available Start: 06-14-2025 End: 06-14-2025 Bamboo flowsheet Dong D Zahler DO Work Phone: [facility] Start: 06-14-2025 End: 06-14-2025 Bamboo flowsheet Dong D Zahler DO Work Phone: [facility] Start: 06-14-2025 End: 06-14-2025 Postop follow up visit related to original px Dong D Zahler DO Work Phone: [facility] Comment on above: Pseudophakia (Primar y Dx) Start: 06-14-2025 End: 06-14-2025 ambulatory DONG D ZAHLER Not Available Start: 06-07-2025 End: 06-07-2025 Bamboo flowsheet Dong D Zahler DO Work Phone: [facility] Start: 06-07-2025 End: 06-07-2025 Bamboo flowsheet Dong D Zahler DO Work Phone: [facility] Start: 06-07-2025 End: 06-07-2025 Postop follow up visit related to original px Dong D Zahler DO Work Phone: [facility] Comment on above: Pseudophakia (Primar y Dx); Age-related nuclear cataract of right eye Start: 06-07-2025 End: 06-07-2025 ambulatory DONG D ZAHLER Not Available Start: 05-31-2025 End: 05-31-2025 Bamboo flowsheet Dong D Zahler DO Work Phone: [facility] Start: 05-31-2025 End: 05-31-2025 Bamboo flowsheet Dong D Zahler DO Work Phone: [facility] Start: 05-31-2025 End: 05-31-2025 Postop follow up visit related to original px Dong D Zahler DO Work Phone: [facility] Comment on above: Pseudophakia (Primar y Dx) Start: 05-31-2025 End: 05-31-2025 ambulatory DONG D ZAHLER Not Available Start: 05-10-2025 End: 05-10-2025 Bamboo flowsheet Dong D Zahler DO Work Phone: [facility] Start: 05-10-2025 End: 05-10-2025 Bamboo flowsheet Dong Rush DO Work Phone: [facility] Start: 05-10-2025 End: 05-10-2025 Refill Lavinia Smith COT [facility] Start: 05-09-2025 End: 05-09-2025 Patient encounter procedure Raymond White MD -[facility] [address] Work Phone: Start: 05-09-2025 End: 05-09-2025 ambulatory Francisca Pedroza MD Work Phone: [facility] Work Phone: Start: 03-09-2025 End: 03-09-2025 [facility] Start: 03-09-2025 End: 03-09-2025 Bamboo flowsheet [facility] Work Phone: [facility] Start: 03-09-2025 End: 03-09-2025 Office outpatient visit 15 minutes [facility] Work Phone: [facility] Comment on above: Melanocytic nevus of trunk (Primary Dx); Seborrheic keratosis; Lentigo simplex; Shipman angioma; Neoplasm of uncertain behavior of skin Start: 03-09-2025 End: 03-09-2025 ambulatory ANTHONY LAURENT Not Available Start: 12-31-2024 End: 12-31-2024 ambulatory JANIYA OLIVAREZ Not Available Start: 11-03-2024 End: 11-03-2024 Patient encounter procedure Francisca Pedroza MD Work Phone: [facility] [address] Work Phone: Start: 11-03-2024 End: 11-03-2024 ambulatory Francisca Pedroza MD Work Phone: [facility] Work Phone: Start: 09-20-2024 End: 09-20-2024 Office outpatient visit 25 minutes Janiya Olivarez DO Work Phone: [facility] Comment on above: Postmenopausal atrop hic vaginitis; Breast cancer screening by mammogram Start: 09-20-2024 End: 09-20-2024 ambulatory JANIYA OLIVAREZ Not Available Start: 07-06-2024 End: 07-06-2024 ambulatory MD Francisca Pedroza Work Phone: [facility] Work Phone: Start: 07-06-2024 End: 07-06-2024 Patient encounter procedure MD Francisca Pedroza Work Phone: On License Of [facility] Work Phone: Start: 07-01-2024 End: 07-01-2024 ambulatory MD Francisca Pedroza Work Phone: [facility] Work Phone: Start: 07-01-2024 End: 07-01-2024 Patient encounter procedure MD Francisca Pedroza Work Phone: On License Of [facility] Work Phone: Start: 04-22-2024 End: 04-22-2024 ambulatory MD Francisca Pedroza Work Phone: [facility] Work Phone: Start: 04-22-2024 End: 04-22-2024 Patient encounter procedure MD Francisca Pedroza Work Phone: [facility] [address] Work Phone: Start: 04-05-2024 End: 04-05-2024 ambulatory MD Francisca Pedroza Work Phone: [facility] Work Phone: Start: 04-05-2024 End: 04-05-2024 Patient encounter procedure MD Francisca Pedroza Work Phone: [facility] Work Phone: Start: 03-30-2024 Non-patient / Non-visit MD Yudy Pedroza Work Phone: On License Of [facility] [employer] Work Phone: Start: 03-29-2024 Patient encounter procedure MD Francisca Pedroza Work Phone: [facility] Start: 03-29-2024 End: 03-29-2024 ambulatory [facility] Work Phone: Start: 03-29-2024 End: 03-29-2024 Patient encounter procedure On License Of [facility] Work Phone: Start: 12-31-2023 End: 12-31-2023 Patient encounter procedure [facility] Work Phone: Start: 04-23-2023 End: 04-23-2023 ambulatory Francisca Pedrzoa Other [employer] Other Start: 04-23-2023 Telephone encounter Francisca Pedroza [facility] Start: 03-25-2023 End: 03-25-2023 ambulatory Francisca Pedroza Other [employer] Other Start: 03-25-2023 Office outpatient vi sit 15 minutes Francisca Pedroza [facility] Start: 12-25-2021 End: 12-26-[address] FRANCISCA PEDROZA Facility:[facility] Start: 07-20-2021 End: 07-20-2021 ambulatory SHAIKH JOSÉ MIGUEL Facility:[facility] Procedures Date Procedure Procedure Detail Performing Clinician Start: 05-10-2025 Oph bmtry prtl coher intrfrmtry io lens pwr fady Dong Rush DO Work Phone: Start: 05-10-2025 End: 05-10-2025 Oph medical xm&eval compre new pt 1/> vst Age-related nuclear cataract of both eyes Dong Rush DO Work Phone: Comment on above: Age-related nuclear cataract of both eyes (Primary Dx) Start: 04-05-2024 Dual energy X-ray absorptiometry MD Francisca Pedroza Work Phone: Plan of Treatment Date Care Activity Detail Author Start: 03-09-2026 End: 03-09-2026 Patient encounter procedure [facility] Start: 09-26-2025 End: 09-26-2025 Patient encounter procedure [facility] Start: 07-22-2025 End: 07-22-2025 Patient encounter procedure [facility] Comment on above: Arrived Start: 07-12-2025 End: 07-12-2025 Patient encounter procedure 07/12/2025 9:45 AM EDT Office Visit [facility] [address] [place] [id number] Dong Rush, DO [address] [place] [address] Arrived [facility] Comment on above: Arrived Start: 06-27-2025 Influenza vaccination Influenza Vacc ine (#1) [facility] Start: 06-21-2025 End: 06-21-2025 Patient encounter procedure 06/21/2025 10:15 AM EDT Office Visit [facility] [address] [place] [id number] Dong Rush, DO [address] [place] [address] Arrived [facility] Comment on above: Arrived Start: 06-14-2025 End: 06-14-2025 Patient encounter procedure [facility] Comment on above: Arrived Start: 06-07-2025 End: 06-07-2025 Patient encounter procedure 06/07/2025 8:45 AM EDT Office Visit [facility] [address] [place] [phone] Dong Rush, DO [address] [place] [address] Arrived [facility] Comment on above: Arrived Start: 05-31-2025 End: 05-31-2025 Patient encounter procedure [facility] Comment on above: Arrived Start: 05-10-2025 End: 05-10-2025 Patient encounter procedure [facility] Comment on above: Arrived Start: 03-29-2025 Medicare Annual Well ness (AWV) Medicare Annual Wellness (AWV) [facility] Start: 03-09-2025 End: 03-09-2025 Patient encounter procedure [facility] Comment on above: Arrived Start: 11-11-2024 End: 11-11-2024 Professional / ancillary services management 11/11/2024 11:30 AM EST Ancillary Procedure [facility] [address] [place] [id number] [facility] Start: 09-02-2024 Medicare Annual Well ness (AWV) Medicare Annual Wellness (AWV) [facility] Start: 06-04-2019 Pneumococcal Vaccine : 65+ Years (2 of 2 - PPSV23 or PCV20) Pneumococcal Vaccine: 65+ Years (2 of 2 - PPSV23 or PCV20) [facility] Start: 06-04-2019 Pneumococcal Vaccine : 65+ Years (2 of 2 - PPSV23) Pneumococcal Vaccine: 65+ Years (2 of 2 - PPSV23) [facility] metabo lic 1999 panel - Serum or Plasma [facility] metabo lic 1999 panel - Serum or Plasma [facility] Immunizations Immunization Date Immunization Notes Care Provider Fa cility 08-01-2025 influenza, high dose seasonal, preservative-free Francisca Pedroza MD Work Phone: [facility] 09-13-2024 influenza, high dose seasonal, preservative-free Janiya Olivarez DO Work Phone: [facility] 09-13-2024 influenza virus vaccine, unspecified formulation Dong Rush DO Work Phone: [facility] 08-29-2023 Influenza, Seasonal, Quadrivalent, Adjuvanted Janiya Olivarez DO Work Phone: [facility] 08-09-2022 Influenza, High-dose Seasonal, Quadrivalent, Preservative Free Janiya Olivarez DO Work Phone: [facility] 09-11-2021 influenza virus vaccine, unspecified formulation [facility] 09-11-2021 Influenza, Seasonal, Quadrivalent, Adjuvanted Janiya Olivarez DO Work Phone: [facility] 08-06-2021 COVID-19 mRNA, Comirnaty (Pfizer) [facility] 11-28-2020 COVID-19 mRNA, Comirnaty (Pfizer) [facility] 08-14-2020 influenza virus vaccine, unspecified formulation [facility] 08-30-2019 influenza virus vaccine, unspecified formulation [facility] 08-09-2019 influenza, seasonal, injectable Janiya Olivarez DO Work Phone: [facility] 09-01-2018 influenza virus vaccine, unspecified formulation [facility] 09-01-2018 Seasonal trivalent influenza vaccine, adjuvanted, preservative free Janiya Olivarez DO Work Phone: [facility] 06-04-2018 pneumococcal conjuga te vaccine, 13 valent [facility] Payers Date Payer Category Payer Medicaid [employer] MEDICARE A DVANTAGE [id number] 1958 Medicare [id number] 1958 Medicare [id number] 1945 Unknown [id number] 1945 Unknown [id number] 1945 Unknown [id number] 1945 Unknown [id number] 1945 Unknown [id number] 1945 Unknown [id number] [id number] 1945 Unknown [id number] [id number] 1945 Unknown [id number] 1945 Unknown [id number] [id number] 1945 Unknown [id number] [id number] 1945 Unknown [id number] [id number] 1945 Unknown [id number] [id number] 1945 Unknown [id number] Self-pay Self Pay [id number] Social History Date Type Detail Facility Unknown if ever smoked [facility] Other Start: 09-20-2024 End: 07-12-2025 Sex Assigned At [facility] Other Start: 03-25-2023 End: 09-02-2023 Tobacco smoking status NHIS Never smoked tobacco (finding) [facility] Start: 1945 Sex Assigned At Female F [facility] [place] Start: 09-02-2023 Tobacco use and exposure Smokeless tobacco non-user [facility] Start: 09-20-2024 End: 07-22-2025 Alcoholic beverage intake Lifetime non-drinker (finding) [facility] Start: 09-20-2024 End: 07-12-2025 History of Social function [facility] How often to you hav e a drink containing alcohol? Never [facility] How many standard drinks containing alcohol do you have on a typical day? Patient does not drink [facility] Start: 09-02-2023 Alcohol Comment Caffeine intak e: 2-3 cups per day coffee & soda [facility] Start: 1945 Sex assigned at Not on file [facility] Start: 11-04-2024 Sex Female (finding) [facility] Clinical Notes 03-25-2023 to 07-22-2025 Dong Rush DO - 07/22/2025 9:30 AM EDKiera Rush DO - 07/12/2025 9:45 AM EDKiera Rush, - 06/07/2025 8:45 AM EDKiera Rush, - 05/31/2025 8:30 AM EDT Note Date & Type Note Facility 07-22-2025 History of Presen t illness Narrative Images from the original note were not [...] a dilated exam. documented in this encounter [facility] 09-16-2025 History of Presen t illness Narrative Images from the original note were not included. Assessment/Plan Diagnoses and all orders for this visit: Dry eyes - Dry Eyes OU -- Environmental changes to minimize dryness and exposure and the use of artificial tears were recommended. documented in this encounter [facility] 06-07-2025 History of Presen t illness Narrative Images from the original note were not included. Assessment/Plan Diagnoses and all orders for this visit: Pseudophakia - s/p CE OS (POD #7): Patient provided with post-op form. Instructed to continue drops. Discontinue eye shield. Instructed to call immediately with increased pain, redness, decreased vision, questions or concerns. Age-related nuclear cataract of right eye - Visually Significant Cataract, OD: I discussed the risks, benefits, alternatives, and expectations of cataract surgery. A complete ophthalmic exam was performed and it was determined that the cataracts were a primary source of vision decline, affecting activities of daily living, necessitating removal. Limited vision post-surgery may occur with pre-existing conditions affecting other areas of the eye or the brain was explained and the patient displayed an understanding. The overall objective is to improve ADLs, not eliminate glasses or restore vision to 20/20. Tests were reviewed - the different lens options were explained including the gjf-lb-dlwlqa fees for any upgrades. Intraocular lens (IOL) selection may be altered either prior to or during the procedure based on the doctor's discretion including reverting to a traditional intraocular lens (IOL). They understood that there will exist the potential of glasses prescription need post surgery for near, distance or possibly both. The patient stated a full understanding and a desire to proceed with the procedure. The patient received cataract measurements and had any additional questions answered. - A complete exam was performed including a physical exam: General: AAOx3 and NAD, Lungs: Clear, Heart: RRR, Abdomen: S/NT/ND, Extremities: no pitting edema. documented in this encounter [facility] 05-31-2025 History of Presen t illness Narrative Images from the original note were not included. Assessment/Plan Diagnoses and all orders for this visit: Pseudophakia - s/p CE OS (POD #1): Patient provided with post-op form. Instructed to continue drops as well as shield. Instructed to call immediately with increased pain, redness, decreased vision, questions or concerns. documented in this encounter [facility] 05-10-2025 History of Presen t illness Narrative Images from the original note were not included. Subjective Patient ID: Eileen Burch is a 79 y.o. female. Chief Complaint Cataract HPI Cataract In both eyes. Associated symptoms include blurred vision, glare and a need for brighter lights. Onset was gradual. Duration of years. Frequency is constant. Context: distance vision, mid-range vision, near vision, reading, computer work, driving, night driving and dim lighting. Since onset it is gradually worsening. Affected activities include reading, working on the computer, driving, night driving and daily activities. Treatments tried include glasses. Response to treatment was mild improvement. Comments Cataract extraction (CE) eval for pt referred by Dr Taylor. Using OTC drops nightly for dry eyes. Right eye (OD) tears constantly. Pt states vision has noticeably declined for distance and reading. A lot of glare. No pm or defib No latex allergy No flomax Last edited by CRISTOFER EVANS on 05/10/2025 1:09 PM. Current Outpatient Medications (Ophthalmic Agents) Medication Sig Dispense Refill Uumtqberfeh-Dxfzxixj-Iqqwnqfut 1-0.5-0.075 % solution Administer 1 drop into affected eye(s) in the morning and 1 drop at noon and 1 drop in the evening and 1 drop before bedtime. 10 mL 1 No current facility-administered medications for this visit. (Ophthalmic Agents) Current Outpatient Medications (Other) Medication Sig Dispense Refill Calcium Carb-Cholecalciferol (CALCIUM 500 + D3 PO) Orally losartan (Cozaar) 25 MG tablet 1 (one) time each day at the same time. MULTIPLE VITAMIN PO Multiple Vitamin Protonix 40 MG EC tablet 1 (one) time each day at the same time. simvastatin (Zocor) 20 MG tablet 1 (one) time each day at the same time. No current facility-administered medications for this visit. (Other) Past Medical History: Diagnosis Date Abnormal mammogram 09/02/2023 Cataract COVID-19 09/2022 Dry eyes GERD (gastroesophageal reflux disease) Hyperlipidemia Hypertension Osteoporosis Plantar fasciitis Allergies Allergen Reactions Other Swelling Pneumonia Vaccine Sulfanilamide Other Reaction(s): Unknown Review of Systems Constitutional: Negative. HENT: Negative. Eyes: Negative. Respiratory: Negative. Cardiovascular: Negative. Gastrointestinal: Negative. Genitourinary: Negative. Musculoskeletal: Negative. Skin: Negative. Neurological: Negative. Psychiatric/Behavioral: Negative. Hematological: Negative. Endocrine: Negative. Allergic/Immunologic: Negative. Objective Base Eye Exam Visual Acuity (Snellen - Linear) Right Left Dist cc 20/40 -2 20/50 Correction: Glasses Tonometry (Applanation, 1:26 PM) Right Left Pressure 16 16 Pupils Pupils Right PERRL Left PERRL Visual Brown Left Right Full Full Extraocular Movement Right Left Full, Ortho Full, Ortho Neuro/Psych Oriented x3: Yes Dilation Both eyes: 1.0% Mydriacyl @ 1:10 PM Additional Tests Keratometry K1 [place] K2 [place] Right 45 161 45.5 71 Left 44.75 8 45.75 98 Glare Testing High Right 20/100 Left 20/200 Slit Lamp and Fundus Exam External Exam Right Left External Normal Normal Slit Lamp Exam Right Left Lids/Lashes Blepharitis Blepharitis Conjunctiva/Sclera White and quiet White and quiet Cornea Decreased tear film Decreased tear film Anterior Chamber Deep and quiet Deep and quiet Iris Round and reactive Round and reactive Lens 3+ Nuclear sclerosis, 2+ Cortical cataract, Vacuoles 3+ Nuclear sclerosis, 2+ Cortical cataract, Vacuoles Anterior Vitreous Normal Normal Fundus Exam Right Left Disc Normal Normal Macula Normal Normal Vessels Normal Normal Periphery Normal Normal Refraction Wearing Rx Sphere Cylinder [place] Add Right +0.75 +0.00 180 +2.25 Left +2.50 -0.75 070 +2.25 Manifest Refraction Sphere Cylinder [place] Right +1.50 -0.50 129 Left +2.25 -0.25 077 Final Rx Sphere Cylinder [place] Dist VA Right +1.50 -0.50 130 20/30 Left +2.25 -0.25 075 20/40 Expiration Date: 05/10/2026 Assessment/Plan Age-related nuclear cataract of both eyes - Visually Significant Cataract, OU: I discussed the risks, benefits, alternatives, and expectations of cataract surgery. A complete ophthalmic exam was performed and it was determined that the cataracts were a primary source of vision decline, affecting activities of daily living, necessitating removal. Limited vision post-surgery may occur with pre-existing conditions affecting other areas of the eye or the brain was explained and the patient displayed an understanding. The overall objective is to improve ADLs, not eliminate glasses or restore vision to 20/20. Tests were reviewed - the different lens options were explained including the ekg-en-pcgmqt fees for any upgrades. Intraocular lens (IOL) selection may be altered either prior to or during the procedure based on the doctor's discretion including reverting to a traditional intraocular lens (IOL). They understood that there will exist the potential of glasses prescription need post surgery for near, distance or possibly both. The patient stated a full understanding and a desire to proceed with the procedure. The patient received cataract measurements and had any additional questions answered. - A complete exam was performed including a physical exam: General: AAOx3 and NAD, Lungs: Clear, Heart: RRR, Abdomen: S/NT/ND, Extremities: no pitting edema. - Coordination of care will be shared with Dr. Taylor. Cataract Surgery for OU will take place in the near future. documented in this encounter [facility] 03-09-2025 History of Presen t illness Narrative Skin Check Location: Patient requests a full body skin examination Dermatologic history: no history of skin cancer, no history of atypical moles, no family history of melanoma Last visit: 1 year ago Established patient of Jeannette Steiner PA-C All pertinent medical history, medications, and allergies were reviewed. General Exam: alert, oriented to person, place, and time, normal affect, well appearing Unaccompanied Scalp, Examined , exam limited by hair Right leg Examined Head, Face Examined Left leg Examined Neck Examined Right foot Examined Chest Examined Left foot Examined Back Examined Buttocks Examined Patient kept underwear on Abdomen Examined Digits,nails: Examined Right arm Examined Left arm Examined Lymphatics: Not examined Hands Examined Skin Exam 1. NEOPLASM OF UNCERTAIN BEHAVIOR OF SKIN Right Upper Back soft subcutaneous nodule Suspect lipoma. Discussed the only way to know for sure the lesion is a lipoma would be to have it removed and tested. Discussed observation vs. excision. Patient elected for observation today. Return to clinic for re-evaluation if lesion is enlarging/becoming symptomatic. 2. MELANOCYTIC NEVUS OF TRUNK Generalized Scattered benign appearing, regular brown to light brown melanocytic papules and macules with similar morphology Counseled regarding these benign growths. Rarely, a nevus can develop into malignant melanoma, so any changing nevi should be promptly re-evaluated. 3. SEBORRHEIC KERATOSIS Generalized Stuck on verrucous, variably pigmented papules and plaques. Patient was counseled regarding these benign growths. Removal is normally not necessary, but they may be removed if they are symptomatic or for cosmetic reasons. 4. LENTIGO SIMPLEX Head - Anterior (Face) Scattered nuñez macules in sun-exposed areas. The patient was informed that lentigines are benign pigmented lesions that occur on sun-exposed and sun-damaged skin. No treatment is necessary. Recommended regular use of broad spectrum sunscreen SPF 30 or higher 5. SHIPMAN ANGIOMA Trunk Scattered shipman-red papule(s). The patient was informed that angiomas are benign growths on the the skin. No treatment is necessary. Next Visit: 1 year skin check documented in this encounter [facility] 09-20-2024 History of Presen t illness Narrative Images from the original note were not included. Janiya Olivarez, Obstetrics and Gynecology Eileen Burch 1945 09/20/24 [id number] Yearly Wellness Exam Chief Complaint Patient presents with Gynecologic Exam Medicare off year. LMP: KAMRON BSO 1992 HRT: None Last pap 09-03-23 neg. Last mammogram 09-03-23 [facility]. Scheduled 10/2024. Denies breast or urinary concerns. Diarrhea Recurring diarrhea, mostly in the AM. Has discussed with other providers, but no concern from them. Uses OTC for temporary relief. Visit Vitals BP 126/74 Ht 5' 2.75 Wt 160 lb BMI 28.57 kg/m OB Status Hysterectomy Smoking Status Never BSA 1.79 m OB History Para Term AB Living 2 2 2 2 SAB IAB Ectopic Multiple Live Births 2 # Outcome Date GA Lbr Eddy/2nd Weight Sex Type Anes PTL Lv 2 Term Vag-Spont LISA 1 Term Vag-Spont LISA Obstetric Comments Heaviest baby weight 8 lbs 8 oz Current Outpatient Medications Medication Sig Dispense Refill Calcium Carb-Cholecalciferol (CALCIUM 500 + D3 PO) Orally losartan (Cozaar) 25 MG tablet 1 (one) time each day at the same time. MULTIPLE VITAMIN PO Multiple Vitamin Protonix 40 MG EC tablet 1 (one) time each day at the same time. simvastatin (Zocor) 20 MG tablet 1 (one) time each day at the same time. No current facility-administered medications for this visit. Allergies Allergen Reactions Other Swelling Pneumonia Vaccine Sulfanilamide Other Reaction(s): Unknown Past Surgical History: Procedure Laterality Date BUNIONECTOMY Left NEUROMA SURGERY Left 2001 e/o - foot TOTAL ABDOMINAL HYSTERECTOMY W/ BILATERAL SALPINGOOPHORECTOMY 1992 Past Medical History: Diagnosis Date Abnormal mammogram 09/02/2023 COVID-19 09/2022 GERD (gastroesophageal reflux disease) Hyperlipidemia (CMS/HCC) Hypertension (CMS/HCC) Osteoporosis (CMS/[facility]) Plantar fasciitis ROS Const: Denies appetite change, fever, chills. Allergy: Denies medication reaction. Ocular: Denies visual acuity change. ENT: Denies hearing change. Endoc: Denies weight loss. Resp: Denies dyspnoea, wheezing. Cardiac: Denies angina, palpitations. GI: Denies nausea, vomiting. Haem: Denies bleeding. : Denies incontinence. MSK: Denies arthralgias, joint oedema. Derm: Denies rash, hair loss. Neuro: Denies ataxia, tremor. Also see HPI for elements of ROS documented therein and for details of positive findings, which shall supersede the foregoing. EXAM GENERAL EXAMINATION alert oriented well developed, well nourished. HEAD: normocephalic atraumatic. EYES: sclera anicteric. EARS: no obvious hearing deficit. NECK/THYROID: neck supple no cervical lymphadenopathy no thyromegaly. LYMPH NODES: no axillary, supraclavicular or inguinal adenopathy. SKIN: warm and dry. HEART: regular rate and rhythm. LUNGS: clear to auscultation bilaterally. CHEST:axillary nodes grossly normal. BREASTS:no masses palpable bilaterally, normal nipples bilaterally - everted -fatty replaced - dense - well supported- axilla negative. ABDOMEN: soft, nontender, nondistended, no masses palpable. BACK: no costovertebral angle tenderness, no obvious scoliosis/kyphosis. FEMALE GENITOURINARY:x ray developer in room, atrophic vaginal mucosa, loss of folds and color, cuff well supported, no studding or induration, side banda negative, cul de sac and adnexa negative, grade 1 cytocele/ rectocele, stenotic introitus/ vault, right mid majora sk RECTAL:normal tone , no masses palpable , only small external hemorrhoids. EXTREMITIES no edema. NEUROLOGIC: alert and oriented. PSYCH: cooperative with exam. ICD-10-CM 1. 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 Findings of today's exam discussed with the patient. Continue MSBE. Ca/Vit D recommendations reviewed with the patient. The patient is to contact the office with any changes to her gynecological condition or any changes with breast or bleeding. The patient is to return in 1 year or as needed 2. Breast cancer screening by mammogram Z12.31 Scheduled 10/2024 Entered by Julieth Mckenzie MA acting as scribe for Dr. Janiya Olivarez. Signature Julieth Mckenzie MA Date 09/20/24 . Time 1:21 PM . The documentation recorded by the scribe accurately reflects the service(s) I personally performed and the decisions I made. Signature Maxine Olivarez D.O. Date 09/20/24 Time 5:00PM. documented in this encounter [facility] 03-25-2023 Evaluation note Encounter Date Diagnosis Assessment Notes February, Other otitis externa, right ear (ICD-10 - H60.8X1) Discussed that examination today is consistent with otitis externa (swimmer''''s ear). Medication as directed. May use Tylenol and Ibuprofen over the counter, dosages based upon the bottle recommendation s. No swimming for the next 6-7 days, while being treated. Do not wear ear buds in the affected ear while being treated. Follow up if not improved in the next 5-7 days. February, Mixed hyperlipidemia (ICD-10 - E78.2) Due for labs. Continue present med February, Essential (primary) hypertension (ICD-10 - I10) Due for lab - continue present med. [facility] Other Evaluation noteNo InformationNortVeterans [facility] [place] Other Evaluation note* Diagnosis Onset Date Resolution Status Maxillary sinusitis, acute a cute Mixed hyperlipidemia acute Vitamin D deficiency acute [facility] Work Phone: Evaluation note* Diagnosis Onset Date Resolution Status Medicare annual wellness visit, subsequent acute Mixed hyperlipidemia acute Vitamin D deficiency acute [facility] Work Phone: Evaluation noteNo assessment information available [facility] Work Phone: Evaluation note* Diagnosis Onset Date Resolution Status Strain of muscle, fascia and tendon of lower back, initial encounter acute [facility] Work Phone: Evaluation note* Diagnosis Postmenopausal atrophic vaginitis Breast cancer screening by mammogram [facility] Diagnosis Melanocytic nevus of trunk- Primary Benign neoplasm of skin of trunk, except scrotum Seborrheic keratosis Lentigo simplex Other dyschromia [place] angioma Neoplasm of uncertain behavior of skin [facility]* Diagnosis Age-related nuclear cataract of both eyes- Primary [facility] Diagnosis Pseudophakia- Primary Lens replaced by other means [facility] Diagnosis Pseudophakia- Primary Lens replaced by other means Age-related nuclear cataract of right eye [facility] Diagnosis Dry eyes- Primary Unspecified tear film insufficiency [facility] Diagnosis Pseudophakia- Primary Lens replaced by other means [facility] Diagnosis Onset Date Resolution Status Admit Date Essential (primary) hypertension acu te August 01, 2025 10:47am Mixed hyperlipidemia acute Octo 2024 10:47am [facility] Work Phone: History general Narrative - Reported* Type Description Date Medical History osteoporosis Medical History hypercholesterolemia Medical History mononucleosis Surgical History Bunionectomy 2019 [facility] [place] Other [facility] general [facility]ative - [facility]No[facility] [place] Other History of Present illness Narrative* Dong Rush DO - 06/14/2025 9:00 AM EDT Images from the original note were not included. Assessment/Plan Diagnoses and all orders for this visit: Pseudophakia - s/p CE OD (POD #1): Patient provided with post-op form. Instructed to continue drops as well as shield. Instructed to call immediately with increased pain, redness, decreased vision, questions or concerns. [facility]ative * Dong Rush DO - 06/21/2025 10:15 AM EDT Images from the original note were not included. Assessment/Plan Diagnoses and all orders for this visit: Pseudophakia - s/p CE OD (POD #7): Patient provided with post-op form. Instructed to continue drops. Discontinueeye shield. Instructed to call immediately with increased pain, redness, decreased vision, questions or concerns. [facility])No reason for referral information availableC[facility] Work Phone: Summary Purpose Family History Relationship Condition Age at Onset Recorded Date/T radha father Heart disease Unknown Unknown Not Specified Unknown Heart disease Unknown Relationship Condition Age at Onset Recorded Date/T radha father Heart disease Unknown Unknown mother Unknown Heart disease Unknown Advance Directives Advance Directive Response Recorded Date/ Time Advance Directives No May 29 1:06pm Advance Directive Response Recorded Date/ Time Advance Directives No May 29 12:06pm Chief Complaint and Reason for Visit Chief Complaint sinus infection - ne gative covid wellness Reason for Visit Maxillary sinusitis, acute Mixed hyperlipidemia Vitamin D deficiency Chief Complaint wellness M81.0 Reason for Visit Medicare annual well ness visit, subsequent Mixed hyperlipidemia Vitamin D deficiency Chief Complaint wellness M81.0 vitamin D Defic Reason for Visit Medicare annual well ness visit, subsequent Mixed hyperlipidemia Vitamin D deficiency Chief Complaint M81.0 vitamin D Defic Left side pain Chief Complaint vitamin D Defic Left side pain Wilmer EC f/u ,pain in side Reason for Visit Strain of muscle, fa scia and tendon of lower back, initial encounter Chief Complaint Admit Date M81.0 E55.9 Z79.899 November 03, 2024 11 :51am Chief Complaint Admit Date m81.0 ve55.9 z79.899 May 09, 2025 10: 24am Chief Complaint Admit Date m81.0 ve55.9 z79.899 May 09, 2025 10: [facility] August 01, 2025 10 :47am Reason for Visit Admit Date Essential (primary) hypertension August 01, 2025 10:47am Mixed hyperlipidemia August 01, 2025 1 0:47am Additional Source Comments INFORMATION SOURCE (unrecogn ized section and content) DATE CREATED AUTHOR 12/26/2021 [facility] DATE CREATED AUTHOR AUTHOR'S ORGANIZ ATION 08/31/2022 [facility] dical Specialist DATE CREATED AUTHOR AUTHOR'S ORGANIZ ATION 05/13/2025 [facility] DATE CREATED AUTHOR AUTHOR'S ORGANIZ ATION 07/29/2025 [facility] dical Specialists EPIC REASON FOR VISIT (unrecogniz ed section and content) Reason Comments Gynecologic Exam Medicare off year.WINTER P: KAMRON MONAE 1991HRT: NoneLast pap 09-03-23 neg.Last mammogram 09-03-23 [facility]. Scheduled 10/2024. Denies breast or urinary concerns. Diarrhea Recurring diarrhea, mostly in the AM. Has discussed with other providers, but no concern from them. Uses OTC for temporary relief. Reason Onset Date Comments Med Refill 05/10/2025 Reason Comments Cataract Reason Comments Post-op Reason Comments Post-op Cataract Reason Comments [facility] Teams (unrecognized sec tion and content) Team Status: Active Member Role Status Dates Francisca Pedroza MD Primary Care Provider Active Team Status: Inactive Member Role Status Dates Fracnisca Pedroza MD Primary Care Provider Active Start: December 31, 2023 End: December 31, 2023 Mirna Sin APRN NP-C Attending Provider Act yesenia Start: December 31, 2023 End: December 31, 2023 Team Status: Inactive Member Role Status Dates Francisca Pedroza MD Primary Care Provide r, Attending Provider Active Start: March 29, 2024 End: March 29, 2024 Team Status: Active Member Role Status Dates Francisca Pedroza MD Primary Care Provide r, Attending Provider Active Start: March 30, 2024 Team Status: Inactive Member Role Status Dates Francisca Pedroza MD Primary Care Provider Active Start: April 05, 2024 End: April 05, 2024 Leida Colorado NP-C Attending Provider Active Start: April 05, 2024 End: April 05, 2024 Team Status: Inactive Member Role Status Dates Francisca Pedroza MD Primary Care Provider Active Start: April 22, 2024 End: April 22, 2024 Raymond White MD Attending Provider Active St art: April 22, 2024 End: April 22, 2024 Team Status: Inactive Member Role Status Dates Francisca Pedroza MD Primary Care Provider Active Start: July 01, 2024 End: July 01, 2024 Matilde Fountain APRN Attending Provider Active Start: July 01, 2024 End: July 01, 2024 Team Status: Inactive Member Role Status Dates Francisca Pedroza MD Primary Care Provide r, Attending Provider Active Start: July 06, 2024 End: July 06, 2024 [employer] Equipment Operator Relationship Specialty Start Date End Date Unallocated, [facility] [place] PCP - General 09/02/23 Team Status: Inactive Member Role Status Dates Francisca Pedroza MD Primary Care Provider Active Start: November 03, 2024 End: November 03, 2024 Raymond White MD Attending Provider Active St art: November 03, 2024 End: November 03, 2024 [employer] Equipment Operator Relationship Specialty Start Date End Date Unallocated, [place] [address] PCP - General 09/02/23 Team Status: Inactive Member Role Status Dates Francisca Pedroza MD Primary Care Provider Active Start: May 09, 2025 End: May 09, 2025 Raymond White MD Attending Provider Active St art: May 09, 2025 End: May 09, 2025 [employer] Equipment Operator Relationship Specialty Start Date End Date Unallocated, Ale Thao MD [facility] [place] [address] PCP - General 09/02/23 Furn[employer] And [employer] Equipment Operator Relationship Specialty Start Date End Date Unallocated, Ale Thao MD [facility] [place] [address] PCP - General 09/02/23 Furn[employer] And [employer] Equipment Operator Relationship Specialty Start Date End Date Unallocated, Ale Thao MD [facility] [place] [address] PCP - General 09/02/23 Furn[employer] Equipment Operator Relationship Specialty Start Date End Date Unallocated, Ale Thao MD [address] [place] [address] [place] [address] PCP - General 09/02/23 [employer] Equipment Operator Relationship Specialty Start Date End Date Unallocated, Ale Thao MD [address] [place] [address] [place] [address] PCP - General 09/02/23 Furn[employer] Equipment Operator Relationship Specialty Start Date End Date Unallocated, Ale Thao MD [facility] [place] [address] PCP - General 09/02/23 [employer] Equipment Operator Relationship Specialty Start Date End Date Unallocated, Ale Thao MD [facility] [place] [address] PCP - General 09/02/23 Team Status: Inactive Member Role Status Dates Francisca Pedroza MD Primary Care Provider Active Start: August 01, 2025 End: August 01, 2025 Francisca Pedroza MD Attending Provider Active St art: August 01, 2025 End: August 01, 2025 Goals (unrecognized section and content) Goals may be documented in a n alternate section FOR RECORDS PERTAINING TO PATIENTS WHO ARE OR HAVE BEEN ENROLLED IN A CHEMICAL DEPENDENCY/SUBSTANCEABUSE PROGRAM, SOME INFORMATION MAY BE OMITTED. This clinical summary was aggregated from multiple sources. Caution should be exercised in using it in the provision of clinical care. This summary normalizes information from multiple sources, and as a consequence, information in this document may materially change the coding, format and clinical context of patient data. In addition, data may be omitted in some cases. CLINICAL DECISIONS SHOULD BE BASED ON THE PRIMARY CLINICAL RECORDS. [facility] provides no warranty or guarantee of the accuracy or completeness of information in this document.
[2025-08-04 08:35] LABS: Hematocrit 40.9 % (36.0-48.0); Hemoglobin 13.6 g/dL (12.0-16.0); Immature Granulocytes Abs Auto 0.02 10^3/uL (0.00-0.03); Immature Granulocytes Pct Auto 0.3 % (0.0-0.5); Lymphocytes Absolute Auto 2.1 10^3/uL (1.2-3.8); Mean Corpuscular HGB Conc 33.3 g/dL (29.9-35.2); Mean Corpuscular Hemoglobin 31.6 pg (26.7-34.0); Mean Corpuscular Volume 95.1 fL (81.0-99.0); Platelet Count 264 10^3/uL (150-450); Red Blood Count 4.30 10^6/uL (4.20-5.40); White Blood Count 6.5 10^3/uL (4.0-11.0)
[2025-08-04 09:10] LABS: Alanine Aminotransferase 38 U/L (14-59); Albumin Globulin Ratio 0.9; Albumin Level 3.7 g/dL (3.4-5.0); Alkaline Phosphatase 58 U/L (46-116); Anion Gap 13.8; Aspartate Amino Transferase 27 U/L (15-37); Blood Urea Nitrogen 13.0 mg/dL (7.0-18.0); Calcium 8.9 mg/dL (8.5-10.1); Carbon Dioxide 29.4 mmol/L (21.0-32.0); Chloride 104 mmol/L (98-107); Cholesterol 201 mg/dL (<=200); Estimated GFR (African America >60 (>=60 mL/min/1.73m^2); Estimated GFR (Non-African Ame >60 (>=60 mL/min/1.73m^2); Globulin 4.0 g/dL; Glucose 89 mg/dL (74-106); HDL Cholesterol 58 mg/dL (40-60); Potassium 4.2 mmol/L (3.5-5.1); Sodium 143 mmol/L (136-145); Total Protein 7.7 g/dL (6.4-8.2); Triglycerides 292 mg/dL (<=150); VLDL CHOLESTEROL 58.4 mg/dL
== END 2025-08-04 08:21 | disposition home or self-care (01) ==
LOC: LAB 08:20
PROVIDERS: PCP Family Medicine; Visit Provider Family Medicine
DX: E78.2 Mixed hyperlipidemia (principal); I10 Essential (primary) hypertension
CPT/HCPCS: 36415; 80053; 80061; 82043; 82570; 85025